=== PATIENT | female | born 1935 | race Caucasian/White ===

== ENCOUNTER 2018-05-13 08:33 | Emergency (ER) | payer BC, MEDICARE ==
[2018-05-13 09:19] LABS: #Basophils 0.1 thou/uL (0.0-0.2); #Eosinphils 0.2 thou/uL (0.0-0.7); #Lymphocytes 2.6 thou/uL (1.20-3.40); #Monocytes 0.7 thou/uL (0.11-0.59); #Neutrophils 4.3 thou/uL (1.40-6.50); %Basophils 0.9 % (0.0-1.0); %Eosinophils 2.5 % (0.0-10.0); %Lymphocytes 32.9 % (21.0-51.0); %Monocytes 8.4 % (0.0-10.0); %Neutrophils 55.3 % (42.0-75.0); Hemoglobin 15.9 g/dL (12.0-16.0); Mean Corpuscular Hemoglobin 30.5 pg (27.0-31.0); Mean Corpuscular Volume 92.3 fL (78.0-98.0); Mean Platelet Volume 8.6 fL (7.4-10.4); Platelet Count 208 thou/uL (130-400); RBC Distribution Width 13.2 % (11.5-14.5); Red Blood Cell (RBC) Count 5.22 mill/uL (4.20-5.40); White Blood Cell (WBC) Count 7.8 thou/uL (4.8-10.8)
[2018-05-13 09:31] LABS: INR-International Normal Ratio 1.2; PTT 30.5 SEC (22.9-36.1); Prothrombin Time 15.1 SEC (12.0-14.7)
--- NOTE | 2018-05-13 09:33 | CT ---
CT HEAD WITHOUT CONTRAST: History: Status post fall that occurred last night. Patient tripped over her foot and hit her head. A lert and oriented x2, which is baseline. Comparison: 01-07-17 FINDINGS: No parenchymal hemorrhage. No extraaxial hematoma. No midline shift. Basilar cisterns are patent. Age appropriate atrophy. Note, the degree of atrophy predominately involves the frontal and to a lesser extent temporal lobes. There is stable malacic change with loss of ravi white matter differentiation involving the right parietal lobe, near the vertex. The remainder of the cerebrum demonstrates preser vation of cortical ravi white matter differentiation. No evidence of hydrocephalus. Chronic small vessel ischemic changes of the white matter. Adequate aeration of the sinuses and mastoid air cells. Cavernous carotid atherosclerosis is noted. C alvarium is intact. Small left parietal scalp hematoma, near the vertex. IMPRESSION: 1. No intracranial post-traumatic sequellae. 2. Redemonstration of atrophy, predominately bifrontal in distribution. Correlate for PICK disease ve rsus dementia. POS: [facility]
[2018-05-13 09:50] LABS: Troponin I 0.011 ng/mL (< 0.028)
[2018-05-13 09:57] LABS: ALT (SGPT) 12 U/L (8-55); AST (SGOT) 26 U/L (5-34); Albumin 3.8 g/dL (3.4-4.8); Alkaline Phosphatase 99 U/L (40-150); Anion Gap 10 mmol/L (10-20); BUN (Urea Nitrogen) 14 mg/dL (9.8-20.1); Bilirubin, Total 0.8 mg/dL (0.2-1.2); Calc. Creatinine Clearance 0 mL/min (70-130); Calcium 9.7 mg/dL (7.8-10.44); Carbon Dioxide 26 mmol/L (23-31); Chloride 104 mmol/L (98-107); Estimated GFR-MDRD 50; Globulin 4.2 g/dL (2.4-3.5); Glucose 146 mg/dL (83-110); Potassium 4.3 mmol/L (3.5-5.1); Sodium 136 mmol/L (136-145)
--- NOTE | 2018-05-13 10:35 | RAD ---
THREE VIEWS LEFT FOOT: Indication: Left foot pain after fall. FINDINGS: There is diffuse osteopenia. There is scattered osteoporosis. Lisfranc alignment is preserved. Enthes opathic change is seen in the calcaneus. IMPRESSION: No acute osseous abnormality. POS: [facility]
--- NOTE | 2018-05-13 10:35 | RAD ---
AP CHEST: Indication: History of fall with chest pain. Comparison: 01-07-17 FINDINGS: There is stable cardiomegaly. There is stable elevation of the right hemidiaphragm. No focal contusio n, pleural effusion, or pneumothorax evident. No definite acute osseous abnormality was noted. IMPRESSION: No acute abnormalities. POS: [facility]
--- NOTE | 2018-05-13 10:35 | RAD ---
THERE VIEW LEFT ANKLE: Indication: Fall with pain. FINDINGS: Mortise is intact. There is no fracture or dislocation. Scattered degenerative change is seen. IMPRESSION: No acute osseous abnormality of the left ankle. POS: [facility]
== END 2018-05-13 11:15 ==
LOC: ERS 08:33
DX: S00.93XA Contusion of unspecified part of head, initial encounter (principal); I48.91 Unspecified atrial fibrillation; E11.9 Type 2 diabetes mellitus without complications; E78.5 Hyperlipidemia, unspecified; I10 Essential (primary) hypertension; Z79.82 Long term (current) use of aspirin; Z79.891 Long term (current) use of opiate analgesic; Z79.899 Other long term (current) drug therapy; Z79.4 Long term (current) use of insulin
CPT/HCPCS: 70450; 71045; 80053; 84484; 85025; 85610; 85730; 93005; 96374

== ENCOUNTER 2018-08-17 12:39 | Observation (INO) | payer BC, MEDICARE ==
[2018-08-17 13:40] LABS: #Eosinphils 0.3 thou/uL (0.0-0.7); #Lymphocytes 1.8 thou/uL (1.20-3.40); #Monocytes 0.7 thou/uL (0.11-0.59); #Neutrophils 6.7 thou/uL (1.40-6.50); %Basophils 0.3 % (0.0-1.0); %Eosinophils 2.8 % (0.0-10.0); %Lymphocytes 18.8 % (21.0-51.0); %Monocytes 7.1 % (0.0-10.0); %Neutrophils 71.1 % (42.0-75.0); Hemoglobin 15.5 g/dL (12.0-16.0); Mean Corpuscular HGB CONC 31.7 g/dL (32.0-36.0); Mean Corpuscular Hemoglobin 29.2 pg (27.0-31.0); Mean Corpuscular Volume 92.1 fL (78.0-98.0); Mean Platelet Volume 8.2 fL (7.4-10.4); Platelet Count 255 thou/uL (130-400); Red Blood Cell (RBC) Count 5.31 mill/uL (4.20-5.40); White Blood Cell (WBC) Count 9.5 thou/uL (4.8-10.8)
[2018-08-17 13:45] LABS: ALT (SGPT) 11 U/L (8-55); AST (SGOT) 18 U/L (5-34); Albumin 3.6 g/dL (3.4-4.8); Alkaline Phosphatase 97 U/L (40-150); Anion Gap 15 mmol/L (10-20); BUN (Urea Nitrogen) 25 mg/dL (9.8-20.1); Bilirubin, Total 0.7 mg/dL (0.2-1.2); CK (CPK) 50 U/L (29-168); Calc. Creatinine Clearance 0 mL/min (70-130); Calcium 9.5 mg/dL (7.8-10.44); Carbon Dioxide 21 mmol/L (23-31); Chloride 106 mmol/L (98-107); Estimated GFR-MDRD 52; Globulin 4.5 g/dL (2.4-3.5); Glucose 111 mg/dL (83-110); Potassium 4.3 mmol/L (3.5-5.1); Protein, Total 8.1 g/dL (6.0-8.3); Sodium 138 mmol/L (136-145)
[2018-08-17 14:26] LABS: Bilirubin Negative (Negative); Blood, Urine Moderate (Negative); Clarity CLOUDY (Clear); Glucose, Urine (Dipstick) Negative (Negative); Leukocyte Small (Negative); Nitrite Positive (Negative); Protein, Urine (Dipstick) 30 mg/dL (Neg-Trace); Specific Gravity, Urine 1.018 (1.002-1.036); pH, Urine 6.5 (5.0-9.0)
[2018-08-17 14:28] LABS: Bacteria/HPF Rare-Few HPF (None Seen); Hyaline Casts/LPF 7-10 HYALINE CAST LPF (0-3 Hyaline); Pathc Cast-AUWi Flag 2.03 (0-2.49); RBC/HPF 21-50 HPF (0-3); WBC/HPF 0-3 HPF (0-3)
--- NOTE | 2018-08-17 15:23 | RAD ---
PORTABLE AP CHEST: Date: 08/17/18 HISTORY: Altered mental status. Decreased heart rate. Atrial fibrillation. COMPARISON: 05/13/18. FINDINGS: Cardiac silhouette and pulmonary vasculature are within normal limits. There is linear scarring versu s atelectasis in the left lung base. The lungs otherwise appear clear. Vascular calcifications seen i n thoracic aorta. Osteopenia is present. There has been no interval change from prior exam. IMPRESSION: 1. No acute cardiopulmonary process. 2. Minimal scarring versus atelectasis left lung base. 3. Osteopenia. POS: [facility]
[2018-08-17] MEDS ORDERED: Acetaminophen 325 MG TAB PO PRN (15:28)
[2018-08-17] MEDS ORDERED: HumaLOG 300 UNITS/3 ML VIAL SC PRN (15:45)
[2018-08-17] MEDS ORDERED: Dextrose 5% in Water 1,000 ML IV PRN (15:45)
[2018-08-17] MEDS ORDERED: Dextrose 50% Abboject 50 ML SYRINGE SLOW IVP PRN (15:45)
[2018-08-17 16:40] LABS: Troponin I Less than 0.010 ng/mL (< 0.028)
[2018-08-17 18:06] VITALS: BMI 27.4
[2018-08-17] MEDS: Sodium Chloride 0.9% 1,000 ML IV SCH (19:59)
[2018-08-17 20:22] LABS: Troponin I Less than 0.010 ng/mL (< 0.028)
[2018-08-17] MEDS ORDERED: Pravastatin Sodium 20 MG TAB PO SCH (21:00)
--- NOTE | 2018-08-18 00:54 | HP ---
CHIEF COMPLAINT: Generalized weakness. HISTORY OF PRESENT ILLNESS: This patient is an 82-year-old female with a history of diabetes. She is living in the [facility]. The patient has control over her usual insulin. The folks at the [facility] can only come and check her blood sugar. This morning, the patient reports that she woke feeling poorly, had some dizziness. The person who usually checks her blood sugar was late and she thought she needed to try to go eat something, so she tried to make it out of her apartment to the dining area, but was too weak and basically collapsed, although she does not think she lost consciousness. She is a little bit fuzzy about the details around that time. She believes she was in that state for maybe an hour before she was ultimately found and ambulance was called and brought her to the hospital. She denies any other symptoms and states she had actually been feeling pretty well in her normal state of health prior to this. Apparently, the patient's heart rate was 45 on the arrival of the EMS. She was a bit confused and only oriented x1. She apparently was hypoglycemic on arrival to, although I do not have an exact number. REVIEW OF SYSTEMS: The patient denies any significant fevers, chills, or weight loss. All other systems were reviewed and all pertinent positives and negatives noted in the history of present illness. FAMILY HISTORY: Father when she was 10 of pneumonia. She is unaware of any medical issues with her mother. PAST MEDICAL HISTORY: Notable for the diabetes, apparently a very mild dementia, chronic atrial fibrillation, hyperlipidemia, hypertension. PAST SURGICAL HISTORY: Cataractectomy. SOCIAL HISTORY: The patient is a nonsmoker, nondrinker, and nondrug user. She is a . She is full code and her son would be her surrogate decision maker should that become necessary. ALLERGIES: PENICILLIN. CURRENT MEDICATIONS: 1. Bromfenac 0.09% ophthalmic one drop both eyes b.i.d. 2. Cardizem 120 mg p.o. daily. 3. Dulcolax p.r.n. 4. Exelon transdermal patch 9.5 mg per 24 hour, one patch per day. 5. Folic acid 1 mg daily. 6. Glucagon p.r.n., hypoglycemia. 7. Glutose gel p.r.n., hypoglycemia. 8. Levemir 15 units subcu q.a.m. and 10 units subcu q.p.m. 9. Lotemax ointment ophthalmic 5% one drop to both eyes two times a day. 10. Milk of magnesium p.r.n. 11. MiraLAX p.r.n. 12. Nitrostat p.r.n. 13. NovoLog sliding scale. 14. Pravastatin 10 mg at bedtime. 15. PreserVision AREDS 2 one p.o. b.i.d. 16. Surfak 240 mg b.i.d. 17. Natural tears one drop both eyes b.i.d. 18. Tylenol p.r.n. 19. B12 1000 mcg daily. 20. Aspirin 81 mg daily. 21. Coreg 3.125 mg listed as once daily. 22. Clonidine 0.1 mg daily. 23. Potassium 75 mg p.o. daily. PHYSICAL EXAMINATION: VITAL SIGNS: BP 147/69, pulse 61, respirations 20, O2 saturation 100% on room air. GENERAL APPEARANCE: Age-appropriate female, in no distress. She is awake, alert, oriented, pleasant, and cooperative. HEENT: Pupils are equal and reactive. Her extraocular lens implants are visible. She has no OP lesions, but a profoundly dry oral mucosa. NECK: Supple and symmetric. HEART: Regular without murmurs, gallops, or rubs. LUNGS: Clear to auscultation bilaterally with good chest wall expansion and air exchange. ABDOMEN: Soft, nontender, and nondistended. Positive bowel sounds. No masses. No organomegaly. EXTREMITIES: Warm and dry with no cyanosis, clubbing, or edema. LABORATORY DATA: White count 9.5, hemoglobin 15.5, platelets 255. Sodium 138, potassium 4.3, chloride 106, CO2 21, BUN 25, creatinine 1.03, glucose 111, calcium 9.5, AST 18, ALT 11, alkaline phosphatase 97. Troponin less than 0.02. Albumin 3.6. Urinalysis shows moderate blood, positive nitrites, small leukocyte esterases, 0 to 3 white cells, 7 to 10 squamous epithelium, 7 to 10 hyaline casts. Chest x-ray, no acute cardiopulmonary processes. Minimal scarring versus atelectasis at the lung base on the left and osteopenia. The EKG showed atrial fibrillation with bradycardia in the 50s. IMPRESSION AND PLAN: 1. Hypoglycemia. The patient had apparently some symptomatic hypoglycemia this morning, which is resolved in the emergency department. We will continue to hydrate gently. She has dextrose ordered as well as glucagon. We will hold off on any additional insulin other than some sliding scale. We will watch the patient overnight to ensure no further significant drops. 2. Bradycardia. The patient had some bradycardia on the scene. She has been fairly stable. In the emergency department, she does have atrial fibrillation and is on beta rylee and calcium channel rylee for rate control. This appears to be stabilized. 3. Hypothermia. Temperature initially was 93.5 rectally. She is up to 94 rectally at the time of my exam. She is on a warming blanket, which will be continued. I suspect this was related to the patient's hypoglycemia and should spontaneously resolve. We will check thyroid levels in the morning. 4. Atrial fibrillation. We will continue with her usual medications, although holding any additional Cardizem. 5. History of dementia. Continue with the Exelon patch. 6. Hyperlipidemia. Continue with the pravastatin. Job ID: [id number]
[2018-08-18 04:54] LABS: #Eosinphils 0.1 thou/uL (0.0-0.7); #Lymphocytes 1.9 thou/uL (1.20-3.40); #Monocytes 0.6 thou/uL (0.11-0.59); #Neutrophils 5.1 thou/uL (1.40-6.50); %Basophils 0.4 % (0.0-1.0); %Eosinophils 1.8 % (0.0-10.0); %Lymphocytes 24.1 % (21.0-51.0); %Monocytes 8.2 % (0.0-10.0); %Neutrophils 65.5 % (42.0-75.0); Hemoglobin 13.2 g/dL (12.0-16.0); Mean Corpuscular HGB CONC 32.5 g/dL (32.0-36.0); Mean Corpuscular Hemoglobin 29.9 pg (27.0-31.0); Mean Platelet Volume 7.8 fL (7.4-10.4); Platelet Count 252 thou/uL (130-400); RBC Distribution Width 12.8 % (11.5-14.5); White Blood Cell (WBC) Count 7.8 thou/uL (4.8-10.8)
[2018-08-18 05:09] LABS: Anion Gap 13 mmol/L (10-20); BUN (Urea Nitrogen) 21 mg/dL (9.8-20.1); Calc. Creatinine Clearance 61 mL/min (70-130); Calcium 8.9 mg/dL (7.8-10.44); Carbon Dioxide 20 mmol/L (23-31); Chloride 107 mmol/L (98-107); Estimated GFR-MDRD 63; Glucose 181 mg/dL (83-110); Potassium 3.8 mmol/L (3.5-5.1); Sodium 136 mmol/L (136-145)
[2018-08-18 05:26] LABS: Thyroid Stimulating Hormone 1.2313 uIU/mL (0.35-4.94)
[2018-08-18] MEDS ORDERED: Aspirin 81 mg Enteric Coated Tablet PO SCH (09:00)
[2018-08-18] MEDS ORDERED: Folic Acid 1 MG TAB PO SCH (09:00)
[2018-08-18] MEDS ORDERED: cloNIDine 0.1 MG TAB PO SCH (09:00)
[2018-08-18] MEDS ORDERED: Rivastigmine 9.5mg/24 Hour PATCH TD SCH (09:00)
[2018-08-18] MEDS: Sodium Chloride 0.9% 1,000 ML IV SCH (12:17)
[2018-08-18 16:02] VITALS: BP 153/75; TEMP 98.5
[2018-08-18] MEDS ORDERED: Carvedilol 3.125 MG TAB PO SCH (17:00)
--- NOTE | 2018-08-19 13:42 | DIS ---
DATE OF ADMISSION: 08/17/2018 DATE OF DISCHARGE: 08/18/2018 DISCHARGE DIAGNOSES: 1. Hypoglycemia. 2. Hypothermia. 3. Bradycardia. 4. Atrial fibrillation. 5. History of mild dementia. 6. Hyperlipidemia. HISTORY OF PRESENT ILLNESS: This patient is an 82-year-old female, living in [facility] living environment. The patient has a history of diabetes and reports that on the morning of admission, she usually has someone come check her blood sugars. She awoke feeling poorly that morning and had some dizziness and was delayed getting her blood sugars checked. She decided to go to the dining [facility], but subsequently apparently became weak and was unable to get to the dining [facility]. She was a little sketchy on details, but does not believe that she actually lost consciousness. She believes she was in that state for about an hour till she was found by staff and an ambulance was called. When EMS arrived, she was noted to be bradycardic with a heart rate of 45 and she was somewhat confused. On arrival to the emergency department, she was noted to be hypoglycemic. This was addressed aggressively in the emergency department and improved, although the patient was also noted to have a rectal temperature of 93.5 consistent with hypoglycemia. Her heart rate had recovered to baseline. She had no further episodes of bradycardia at the time of my initial evaluation. HOSPITAL COURSE: The patient was admitted to the hospital with 1 episode of heart rate of 45 per EMS as well as hypoglycemia, which has been aggressively treated in the emergency department and hypothermia with a temperature of 94. At the time of my evaluation, the patient was placed in observation initially with a warming blanket. She was hydrated and her insulin held with only minimal sliding scale available. The patient subsequently recovered very nicely. She had no further bradycardia and no further hypothermia and blood sugars were between 150 and 200. Generally speaking, the patient was up and around, eating well, and was felt to be appropriate for discharge. PHYSICAL EXAMINATION: On the day of discharge, VITAL SIGNS: Temperature was 98.5, pulse 86, respirations 16, O2 saturation 96 on room air, BP 153/75. Of note, the patient had her Cardizem and Coreg held initially because of the episode of bradycardia and as a result in some elevation of her blood pressure which responded nicely once these were resumed. Her heart was irregular without murmurs. LUNGS: Clear. ABDOMEN: Soft and nontender. EXTREMITIES: Warm and dry. DISPOSITION: The patient is discharged to the [facility] facility. ACTIVITY: As tolerated. DIET: She will remain on a diabetic diet. MEDICATIONS: 1. She will continue with her Humulin and sliding scale. However, her nighttime dose of insulin should be held until she has followup. She will continue with her, 1. Nitroglycerin. 2. Namenda. 3. MiraLAX. 4. Milk of magnesia. 5. Lotemax. 6. Dextrose oral gel p.r.n. 7. Exelon patch. 8. Folic acid. 9. Cardizem. 10. Dulcolax. 11. Eliquis. 12. Aspirin. 13. Levemir. 14. B12. 15. Tylenol. 16. PreserVision. 17. Surfak. 18. Natural tears. 19. Pravachol. 20. Bromfenac. 21. Catapres. 22. Coreg. 23. K-Dur. FOLLOWUP: She is to follow up with Dr. Abel in 7 days where her insulin regimen should be readdressed. She can return to the emergency department should she have any problems prior to that time. Job ID: [id number]
--- NOTE | 2018-08-22 23:46 | EKG ---
Test Reason : Blood Pressure : / mmHG Vent. Rate : 065 BPM Atrial Rate : 050 BPM P-R Int : 000 ms QRS Dur : 092 ms QT Int : 426 ms P-R-T Axes : 000 -15 009 degrees QTc Int : 443 ms Atrial fibrillation Moderate voltage criteria for LVH, may be normal variant Abnormal ECG Confirmed by ANDREIA SAHNI DO ([id number]), editor managing director SEMAJ SULLIVAN ([id number] on 08/22/2018 11:45:35 PM Referred By: Confirmed By:ANDREIA SAHNI DO
== END 2018-08-18 18:16 ==
LOC: ERS 12:39 → ERHOLD 15:23 → 2SW 17:49
PROVIDERS: ADMIT Internal Medicine; ATTEND Internal Medicine
DX: E11.649 Type 2 diabetes mellitus with hypoglycemia without coma (principal); R68.0 Hypothermia, not associated with low environmental temperature; R00.1 Bradycardia, unspecified; I48.2 Chronic atrial fibrillation; F03.90 Unspecified dementia, unspecified severity, without behavioral disturbance, psychotic disturbance, mood disturbance, and anxiety; E78.5 Hyperlipidemia, unspecified; I10 Essential (primary) hypertension; Z79.01 Long term (current) use of anticoagulants; Z79.4 Long term (current) use of insulin; Z79.82 Long term (current) use of aspirin; Z79.899 Other long term (current) drug therapy; Z88.0 Allergy status to penicillin; Z98.49 Cataract extraction status, unspecified eye
CPT/HCPCS: 71045; 80048; 80053; 81001; 82550; 82962 ×2; 84439; 84443; 84484 ×2; 85025 ×2; 93005; 96360; 96361 ×2; 97139; 99285; G0378 ×2; 36415; 36416; A4353

== ENCOUNTER 2019-09-06 10:28 | Inpatient (IN) | payer MEDICARE, BC ==
--- NOTE | 2019-09-06 10:58 | RAD ---
EXAM: Single view of the chest HISTORY: Cough COMPARISON: 08/17/2018 FINDINGS: Single view of the chest shows an enlarged but stable cardiomediastinal silhouette. Increa sed interstitial markings are present. There is no evidence of consolidation, mass, or pleural effusion. The bones are unremarkable. IMPRESSION: No evidence of acute cardiopulmonary disease
[2019-09-06 11:13] LABS: #Eosinphils 0.1 thou/uL (0.0-0.7); #Lymphocytes 1.4 thou/uL (1.20-3.40); #Monocytes 0.7 thou/uL (0.11-0.59); #Neutrophils 7.5 thou/uL (1.40-6.50); %Basophils 0.3 % (0.0-1.0); %Eosinophils 0.7 % (0.0-10.0); %Lymphocytes 14.6 % (21.0-51.0); %Monocytes 6.7 % (0.0-10.0); %Neutrophils 77.7 % (42.0-75.0); Hemoglobin 12.4 g/dL (12.0-16.0); Mean Corpuscular HGB CONC 32.6 g/dL (32.0-36.0); Mean Corpuscular Hemoglobin 28.4 pg (27.0-31.0); Mean Corpuscular Volume 86.9 fL (78.0-98.0); Mean Platelet Volume 8.5 fL (7.4-10.4); Platelet Count 213 thou/uL (130-400); RBC Distribution Width 14.3 % (11.5-14.5); Red Blood Cell (RBC) Count 4.38 mill/uL (4.20-5.40); White Blood Cell (WBC) Count 9.7 thou/uL (4.8-10.8)
[2019-09-06] MEDS ORDERED: cefTRIAXone\\ROCEPHIN 1 GM VIAL ONE (11:13)
[2019-09-06 11:51] LABS: Albumin 3.5 g/dL (3.4-4.8)
[2019-09-06 11:52] LABS: Chloride 105 mmol/L (98-107); Sodium 135 mmol/L (136-145)
[2019-09-06 11:53] LABS: Calcium 8.7 mg/dL (7.8-10.44); Glucose 107 mg/dL (83-110)
[2019-09-06 11:54] LABS: Globulin 3.8 g/dL (2.4-3.5); Protein, Total 7.3 g/dL (6.0-8.3)
[2019-09-06 11:55] LABS: Bilirubin, Total 1.5 mg/dL (0.2-1.2); Carbon Dioxide 18 mmol/L (23-31)
[2019-09-06 11:56] LABS: Alkaline Phosphatase 86 U/L (40-110)
[2019-09-06 11:57] LABS: Calc. Creatinine Clearance 0 mL/min (70-130); Estimated GFR-MDRD 52
[2019-09-06 11:58] LABS: BUN (Urea Nitrogen) 19 mg/dL (9.8-20.1); CKMB 2.4 ng/mL (0-6.6)
[2019-09-06] MEDS ORDERED: Azithromycin 500 MG VIAL ONE (11:58)
[2019-09-06 11:59] LABS: ALT (SGPT) 11 U/L (8-55); AST (SGOT) 16 U/L (5-34)
[2019-09-06 12:16] LABS: Anion Gap 16 mmol/L (10-20)
[2019-09-06] MEDS ORDERED: Ondansetron PF 4 MG/2 ML Vial IVP PRN (12:58)
[2019-09-06] MEDS ORDERED: Acetaminophen 325 MG TAB PO PRN (12:58)
[2019-09-06] MEDS ORDERED: Dextrose 50% Abboject 50 ML SYRINGE SLOW IVP PRN ×2 (13:02→20:48)
[2019-09-06] MEDS ORDERED: HumaLOG 300 UNITS/3 ML VIAL SC PRN (13:02)
[2019-09-06] MEDS ORDERED: Dextrose 5% in Water 1,000 ML IV PRN ×2 (13:02→20:48)
--- NOTE | 2019-09-06 13:06 | PDOC.HHP ---
Hospitalist HPI - History of Present Illness Cough History of Present Illness: Ms. Moore is an 83-year-old lady with past medical history of hypertension, atrial fibrillation, type 2 diabetes mellitus who presents from an assisted living facility with cough. She states the cough is productive of yellowish sputum since Friday. A nurse practitioner saw her and they ordered an x-ray, which apparently is being read as a possible pneumonia. She was told to come to the emergency room for further evaluation. She denies any fevers but has said since Friday started feeling a bit chills and feeling weak. She said also she had an episode where she had some blood-tinged sputum. She denies any recent sick contacts or recent travel. States she feels about 50% from her baseline. Hospitalist ROS - Review of Systems Constitutional: reports: chills. denies: fever, sweats, weakness, malaise, other Eyes: denies: pain, vision change, conjunctivae inflammation, eyelid inflammation, redness, other ENT: denies: ear pain, ear discharge, nose pain, nose discharge, nose congestion , mouth pain, mouth swelling, throat pain, throat swelling, other Respiratory: reports: cough. denies: dry, shortness of breath, SOB with excertion, pleuritic pain, sputum, wheezing, other Cardiovascular: denies: chest pain, palpitations, orthopnea, paroxysmal noc. dyspnea, edema, light headedness, other Gastrointestinal: denies: nausea, vomiting, abdominal pain, diarrhea, constipation, melena, hematochezia, other Genitourinary: denies: dysuria, frequency, incontinence, hematuria, retention, other Musculoskeletal: denies: neck pain, shoulder pain, arm pain, back pain, hand pain, leg pain, foot pain, other Skin: denies: rash, lesions, kulwant, bruising, other Neurological: denies: weakness, numbness, incoordination, change in speech, confusion, seizures, other - Medication Medications: bromfenac DROPS : Strength - 0.09 % : OPHTHALMIC Patient Dose: 1 Drps Eyes Both 2 times a day. Cardizem oral TABLET : Strength - 120 mg : ORAL Patient Dose: 1 tab(s) Oral once a day. Dulcolax (bisacodyl) rectal SUPPOSITORY, RECTAL : Strength - 10 mg : RECTAL Patient Dose: 1 tab(s) Rectal.PRN. Exelon transdermal PATCH, TRANSDERMAL 24 HOURS : Strength - 9.5 mg/24 hour : TRANSDERMAL Patient Dose: 1 Patch Transdermal once a day. folic acid oral TABLET : Strength - 1 mg : ORAL Patient Dose: 1 tab(s) Oral once a day. glucagon VIAL (EA) : Strength - 1 mg : INJECTION Patient Dose: 1 mg Intramuscular.PRN FOR HYPOGLYCEMIA. Glutose GEL (GRAM) : Strength - 40 % : ORAL Patient Dose: 1 units Oral.PRN FOR HYPOGLYCEMIA. Levemir VIAL (ML) : Strength - 100 unit/mL : SUBCUTANEOUS Patient Dose: 15 units Subcutaneous once a day (in the morning).& 10 UNITS AT BEDTIME. Lotemax OINTMENT (GRAM) : Strength - 0.5 % : OPHTHALMIC Patient Dose: 1 Drps Eyes Both 2 times a day. Milk of Magnesia oral suspension SUSPENSION, ORAL (FINAL DOSE FORM) : Strength - 800 mg/5 mL : ORAL Patient Dose: 30 mL Oral once a day.PRN. Miralax POWDER (GRAM) : Strength - 17 gram/dose : ORAL Patient Dose: 1 appful Oral once a day.PRN CONSTIPATION. Nitrostat sublingual TABLET, SUBLINGUAL : Strength - 0.4 mg : SUBLINGUAL Patient Dose: 1 tab(s) Sublingual.X3 EVERY 5 MINS PRN CHEST PAIN. NovoLOG VIAL (ML) : Strength - 100 unit/mL : SUBCUTANEOUS Patient Dose: Unknown.SLIDING SCALE. pravastatin TABLET : Strength - 10 mg : ORAL Patient Dose: 1 tab(s) Oral once a day (at bedtime). PreserVision AREDS 2 CAPSULE : Strength - 250 mg-200 unit-40 mg-1 mg-5 mg-1 mg : ORAL Patient Dose: 1 tab(s) Oral 2 times a day. Surfak CAPSULE : Strength - 240 mg : ORAL Patient Dose: 1 tab(s) Oral 2 times a day.PRN CONSTIPATION. Tears Naturale DROPS : OPHTHALMIC Patient Dose: 1 Drps Eyes Both 2 times a day. Tylenol TABLET : Strength - 325 mg : ORAL Patient Dose: 2 tab(s) Oral every 4 hours prn. B Complex-Vitamin B12 TABLET : ORAL Patient Dose: 1000 mcg Oral once a day. aspirin oral TABLET : Strength - 81 mg : ORAL Patient Dose: 81 mg Oral once a day. carvedilol TABLET : Strength - 3.125 mg : ORAL Patient Dose: 3.125 mg Oral once a day. cloNIDine HCl TABLET : Strength - 0.1 mg : ORAL Patient Dose: 0.1 mg Oral once a day. potassium TABLET : Strength - 75 mg : ORAL Patient Dose: 20 mEq Oral once a day. Hospitalist History - Past Medical History Source: patient Cardiac: reports: AFIB, HTN Pulmonary: reports: no pertinent history SET UP [employer]ES: reports: no pertinent history Gastrointestinal: reports: no pertinent history Heme/Onc: reports: no pertinent history Hepatobiliary: reports: no pertinent history Psych: reports: no pertinent history Musculoskeletal: reports: no pertinent history Rheumatologic: reports: no pertinent history Infectious Disease: reports: no pertinent history ENT: reports: no pertinent history Renal/: reports: no pertinent history Endocrine: reports: Diabetes Dermatology: reports: no pertinent history - Past Surgical History Past Surgical History: reports: Other (Removal of adenoids) - Family History Family History: reports: no pertinent history - Social History Smoking Status: Never smoker Alcohol: reports: None Drugs: reports: none Living Situation: Shelter Activity level: independent ambulation - Exam General Appearance: NAD, awake alert, ill appearing Eye: PERRL, anicteric sclera ENT: normocephalic atraumatic, no oropharyngeal lesions, moist mucosa Neck: supple, symmetric, no JVD, no thyromegaly, no lymphadenopathy, no carotid bruit Heart: RRR, no murmur, no gallops, no rubs, normal peripheral pulses Respiratory: no wheezes, no rales, no ronchi, normal chest expansion, no tachypnea, normal percussion Respiratory - other findings: Right lower lobe rhonchi Gastrointestinal: soft, non-tender, non-distended, normal bowel sounds, no palpable masses, no hepatomegaly, no splenomegaly, no bruit Extremities: no cyanosis, no clubbing, no edema Skin: normal turgor, no lesions, no rashes Neurological: cranial nerve grossly intact, normal sensation to touch, no weakness, no focal deficits, no new deficit Musculoskeletal: normal tone, normal strength, no muscle wasting Psychiatric: normal affect, normal behavior, A&O x 3 Hospitalist Results - Labs Result Diagrams: 09/06/19 11:02 09/06/19 11:02 Lab results: WBC 9.7 thou/uL (4.8-10.8) 09/06/19 11:02 Hgb 12.4 g/dL (12.0-16.0) 09/06/19 11:02 Hct 38.0 % (36.0-47.0) 09/06/19 11:02 MCV 86.9 fL (78.0-98.0) 09/06/19 11:02 Plt Count 213 thou/uL (130-400) 09/06/19 11:02 Neutrophils % 77.7 % (42.0-75.0) H 09/06/19 11:02 Sodium 135 mmol/L (136-145) L 09/06/19 11:02 Potassium 4.0 mmol/L (3.5-5.1) 09/06/19 11:02 Chloride 105 mmol/L (98-107) 09/06/19 11:02 Carbon Dioxide 18 mmol/L (23-31) L 09/06/19 11:02 BUN 19 mg/dL (9.8-20.1) 09/06/19 11:02 Creatinine 1.02 mg/dL (0.6-1.1) 09/06/19 11:02 Glucose 107 mg/dL (83-110) 09/06/19 11:02 Lactic Acid 1.8 mmol/L (0.5-2.2) 09/06/19 11:02 Calcium 8.7 mg/dL (7.8-10.44) 09/06/19 11:02 Total Bilirubin 1.5 mg/dL (0.2-1.2) H 09/06/19 11:02 AST 16 U/L (5-34) 09/06/19 11:02 ALT 11 U/L (8-55) 09/06/19 11:02 Alkaline Phosphatase 86 U/L (40-110) 09/06/19 11:02 CK-MB (CK-2) 2.4 ng/mL (0-6.6) 09/06/19 11:02 Troponin I 0.050 ng/mL (< 0.028) H 09/06/19 11:02 B-Natriuretic Peptide 487.4 pg/mL (0-100) H 09/06/19 11:02 Serum Total Protein 7.3 g/dL (6.0-8.3) 09/06/19 11:02 Albumin 3.5 g/dL (3.4-4.8) 09/06/19 11:02 - EKG Interpretation EKG: Rate (beats per minute): 94, Conduction normal, ST segments normal, T waves normal, [place] normal, Other findings include:, left ventricular hypertrophy. - Radiology Interpretation Chest x-ray Status: report reviewed by me Additional Comment: RLL possible infiltrative process Hospitalist H&P A/P - Problem (1) Acute pneumonia Code(s): J18.9 - PNEUMONIA, UNSPECIFIED ORGANISM Status: Acute (2) T2DM (type 2 diabetes mellitus) Status: Acute (3) HTN (hypertension) Code(s): I10 - ESSENTIAL (PRIMARY) HYPERTENSION Status: Acute (4) Chronic atrial fibrillation Code(s): I48.2 - CHRONIC ATRIAL FIBRILLATION * DO NOT USE * Status: Chronic - Plan Plan: Official chest x-ray read makes no mention of right lower lobe, however on my interpretation there seems to be a fluffy infiltrative pattern and possible early consolidation in the right lower lobe. Will repeat chest x-ray tomorrow morning and see if there is any change. Clinically treat for early pneumonia at this time, obtain blood culture, sputum culture, viral pathogen panel Ceftriaxone plus azithromycin Medium dose correctional scale and hypoglycemia protocol for management of diabetes Continue other home medications once reconciled DVT prophylaxis: SCDs CODE STATUS: Full ACP: The son, Harris Moore, is the surrogate decision maker Disposition: Treat for possible early pneumonia. Can de-escalate antibiotics if additional work-up is negative in the coming days.
[2019-09-06 14:51] VITALS: BMI 26.4
[2019-09-06 15:12] LABS: Troponin I 0.058 ng/mL (< 0.028)
[2019-09-06 17:31] LABS: Troponin I 0.036 ng/mL (< 0.028)
[2019-09-06] MEDS ORDERED: Dextrose 50 % In Water 50 ML SYRINGE ONE (18:30)
[2019-09-06] MEDS: Dextrose 5 %-0.45 % NaCl 1,000 ML IV SCH (19:05)
[2019-09-06 19:09] LABS: #Eosinphils 0.1 thou/uL (0.0-0.7); #Lymphocytes 1.3 thou/uL (1.20-3.40); #Monocytes 0.7 thou/uL (0.11-0.59); %Basophils 0.2 % (0.0-1.0); %Lymphocytes 14.5 % (21.0-51.0); %Monocytes 7.7 % (0.0-10.0); %Neutrophils 76.5 % (42.0-75.0); Hemoglobin 12.3 g/dL (12.0-16.0); Mean Corpuscular HGB CONC 32.8 g/dL (32.0-36.0); Mean Corpuscular Hemoglobin 29.1 pg (27.0-31.0); Mean Corpuscular Volume 88.9 fL (78.0-98.0); Mean Platelet Volume 8.5 fL (7.4-10.4); Platelet Count 197 thou/uL (130-400); RBC Distribution Width 14.3 % (11.5-14.5); Red Blood Cell (RBC) Count 4.21 mill/uL (4.20-5.40); White Blood Cell (WBC) Count 9.2 thou/uL (4.8-10.8)
[2019-09-06 19:21] LABS: ALT (SGPT) 10 U/L (8-55); AST (SGOT) 14 U/L (5-34); Albumin 3.2 g/dL (3.4-4.8); Alkaline Phosphatase 84 U/L (40-110); Anion Gap 11 mmol/L (10-20); BUN (Urea Nitrogen) 16 mg/dL (9.8-20.1); Bilirubin, Total 1.1 mg/dL (0.2-1.2); Calc. Creatinine Clearance 52 mL/min (70-130); Calcium 8.7 mg/dL (7.8-10.44); Carbon Dioxide 21 mmol/L (23-31); Chloride 106 mmol/L (98-107); Estimated GFR-MDRD 57; Glucose 232 mg/dL (83-110); Magnesium 1.8 mg/dL (1.6-2.6); Potassium 3.4 mmol/L (3.5-5.1); Protein, Total 7.2 g/dL (6.0-8.3); Sodium 135 mmol/L (136-145)
[2019-09-06 21:39] LABS: Legionella Urinary Ag Negative (Negative); Strep pneumo Urine Ag NEGATIVE (NEGATIVE)
[2019-09-07 05:46] LABS: #Eosinphils 0.1 thou/uL (0.0-0.7); #Lymphocytes 2.3 thou/uL (1.20-3.40); #Monocytes 0.6 thou/uL (0.11-0.59); #Neutrophils 5.4 thou/uL (1.40-6.50); %Basophils 0.4 % (0.0-1.0); %Eosinophils 1.7 % (0.0-10.0); %Lymphocytes 27.2 % (21.0-51.0); %Monocytes 6.9 % (0.0-10.0); %Neutrophils 63.7 % (42.0-75.0); Hemoglobin 11.4 g/dL (12.0-16.0); Mean Corpuscular HGB CONC 32.7 g/dL (32.0-36.0); Mean Corpuscular Hemoglobin 28.9 pg (27.0-31.0); Mean Corpuscular Volume 88.4 fL (78.0-98.0); Mean Platelet Volume 8.3 fL (7.4-10.4); Platelet Count 207 thou/uL (130-400); RBC Distribution Width 14.2 % (11.5-14.5); Red Blood Cell (RBC) Count 3.93 mill/uL (4.20-5.40); White Blood Cell (WBC) Count 8.5 thou/uL (4.8-10.8)
[2019-09-07 05:47] LABS: Anion Gap 12 mmol/L (10-20); BUN (Urea Nitrogen) 17 mg/dL (9.8-20.1); Calc. Creatinine Clearance 62 mL/min (70-130); Calcium 8.7 mg/dL (7.8-10.44); Carbon Dioxide 21 mmol/L (23-31); Chloride 107 mmol/L (98-107); Estimated GFR-MDRD 71; Glucose 78 mg/dL (83-110); Potassium 3.4 mmol/L (3.5-5.1); Sodium 137 mmol/L (136-145)
[2019-09-07] MEDS ORDERED: Bisacodyl 10 MG SUPP PR PRN (07:51)
[2019-09-07] MEDS ORDERED: Docusate Calcium (SURFAK) 240 MG CAP PO PRN (07:51)
[2019-09-07] MEDS ORDERED: Polyethylene Glycol 3350 17 GM Packet PO PRN (07:51)
[2019-09-07] MEDS ORDERED: Nitroglycerin 0.4 MG TAB (25 Tab Bottle) SL PRN (07:51)
[2019-09-07] MEDS ORDERED: Milk Of Magnesia 30 ML UDCUP PO PRN (07:51)
[2019-09-07] MEDS ORDERED: BROMFENAC SODIUM EA EYE PRN ×2 (07:51→08:13)
--- NOTE | 2019-09-07 07:55 | PDOC.HOSPP ---
- Subjective Encounter Date: 09/07/19 Encounter Time: 12:00 Subjective: Patient with flu symptoms for 9 days now, flu A positive. Feeling a bit better this AM but still with cough and severe fatigue. No appetite. Had hypoglycemia overnight, improved now. - Objective Vital Signs & Weight: Vital Signs (12 hours) Temp Pulse Resp BP BP Pulse Ox 09/07/19 03:30 97.7 F 88 18 158/77 H 97 09/06/19 23:00 97.2 F L 80 18 140/79 96 09/06/19 19:55 160/75 H 09/06/19 19:53 90 18 197/91 H 99 Weight Weight 154 lb I&O: 09/06/19 09/07/19 09/08/19 06:59 06:59 06:59 Intake Total 1200 Output Total 100 Balance 1100 Result Diagrams: 09/07/19 04:40 09/07/19 04:40 Additional Labs: Accuchecks 09/07/19 09/06/19 09/06/19 05:17 20:55 19:35 POC Glucose 84 187 H 144 H 09/06/19 09/06/19 09/06/19 19:13 19:03 18:38 POC Glucose 162 H 176 H 338 H 09/06/19 18:28 POC Glucose Less than 35 L* Hospitalist ROS - Review of Systems Constitutional: denies: fever, chills Respiratory: reports: cough, shortness of breath Cardiovascular: denies: chest pain, palpitations, orthopnea Gastrointestinal: denies: nausea, vomiting, abdominal pain - Medication Medications: Active Medications Generic Name Dose Route Start Last Admin Trade Name Freq PRN Reason Stop Dose Admin Dextrose/Sodium Chloride 1,000 mls @ 40 mls/hr 09/06/19 19:00 09/06/19 19:05 D5 1/2 Ns IV 1,000 mls .Q24H [place] Administration Sodium Chloride 10 ml 09/06/19 21:00 09/06/19 22:36 Flush - Normal Saline IVF Not Given Q12HR [place] - Exam General Appearance: awake alert, ill appearing ENT: moist mucosa Heart: RRR, no murmur, no gallops, no rubs Respiratory: CTAB, no wheezes, no rales, no ronchi Gastrointestinal: soft, non-tender, non-distended, normal bowel sounds Psychiatric: normal affect, normal behavior, A&O x 3 Hosp A/P (1) Pneumonia Code(s): J18.9 - PNEUMONIA, UNSPECIFIED ORGANISM Status: Acute Qualifiers: Laterality: right Lung location: lower lobe of lung (2) Influenza A Code(s): J10.1 - FLU DUE TO OTH IDENT INFLUENZA VIRUS W OTH RESP MANIFEST Status: Acute (3) HTN (hypertension) Code(s): I10 - ESSENTIAL (PRIMARY) HYPERTENSION Status: Acute (4) T2DM (type 2 diabetes mellitus) Status: Acute (5) Hypokalemia Code(s): E87.6 - HYPOKALEMIA Status: Acute (6) Hypoglycemia Code(s): E16.2 - HYPOGLYCEMIA, UNSPECIFIED Status: Resolved (7) Chronic anticoagulation Code(s): Z79.01 - INTERMEDIATE CARD TENDER (CURRENT) USE OF ANTICOAGULANTS Status: Chronic (8) Chronic atrial fibrillation Code(s): I48.2 - CHRONIC ATRIAL FIBRILLATION * DO NOT USE * Status: Chronic - Plan Patient positive for Flu A. CXR this AM confirms RLL pneumonia. Not severe with no leukocytosis so I doubt staph. Giving Rocephin and Azithromycin. Will need 1 more day of IV abx. Switch to inpatient. Severe hypoglycemic episode yesterday afternoon. Resolved with glucose. Decrease longacting insulin until eating better. Watch until tomorrow to make sure improving and blood sugars stable, then likely back to assisted living
[2019-09-07] MEDS ORDERED: Potassium Chloride 20 MEQ TAB PO SCH (08:00)
--- NOTE | 2019-09-07 08:54 | RAD ---
CHEST 2 VIEWS: HISTORY: Bronchitis versus pneumonia. COMPARISON: 09/06/2019. FINDINGS: Abnormal increased linear and interstitial opacity changes bilaterally including both right and left infrahilar regions more prominent in the right lower lobe with more indistinction of the right hemidi aphragm certainly concerning for some developing right lower lobe pneumonia or pneumonitis. Heart si ze is within normal limits. Possible small pleural effusions. IMPRESSION: Increased linear and interstitial markings bilaterally more prominent in the right lower lobe, eviden ce for some right lower lobe pneumonia or pneumonitis. Continued followup for clearing. POS: [facility]
[2019-09-07] MEDS ORDERED: Non-Formulary Item 1 EACH (Insulin Detemir 100 Units/Ml [Levemir] 10 UNIT) SQ SCH (09:00)
[2019-09-07] MEDS ORDERED: GLYCERIN EA EYE SCH (09:00)
[2019-09-07] MEDS ORDERED: [UNRECOGNIZED DRUG - OTHER] EA EYE SCH (09:00)
[2019-09-07] MEDS ORDERED: Non-Formulary Item 1 EACH (Vit A/Vit C/Vit E/Zinc/Copper [Preservision Areds] 1 TABLET) PO SCH (09:00)
[2019-09-07] MEDS ORDERED: Non-Formulary Item 1 EACH (Insulin Detemir 100 Units/Ml [Levemir] 20 UNIT) SQ SCH (09:00)
[2019-09-07] MEDS ORDERED: HYPROMELLOSE EA EYE SCH (09:00)
[2019-09-07] MEDS ORDERED: Non-Formulary Item 1 EACH (Losartan Potassium [Cozaar] 50 MG) PO SCH (09:00)
[2019-09-07] MEDS ORDERED: FOLIC ACID 1 MG PO SCH (09:00)
[2019-09-07] MEDS ORDERED: Nystatin Powder 15 GM BOT TOP SCH (09:00)
[2019-09-07] MEDS ORDERED: CRANBERRY PO SCH (09:00)
[2019-09-07] MEDS ORDERED: DEXTRAN EA EYE SCH (09:00)
[2019-09-07] MEDS ORDERED: Non-Formulary Item 1 EACH (Memantine Hcl [Namenda Xr] 28 MG) PO SCH (09:00)
[2019-09-07] MEDS: Aspirin 81 mg Enteric Coated Tablet PO SCH (09:59)
[2019-09-07] MEDS: Artificial Tears 18 DROP/0.9 ML EA EYE SCH ×2 (09:59→22:51)
[2019-09-07] MEDS: Apixaban 5 MG TAB PO SCH ×2 (09:59→22:50)
[2019-09-07] MEDS: Cyanocobalamin (Vitamin B-12) 1,000 MCG TAB PO SCH (10:00)
[2019-09-07] MEDS: Folic Acid 1 MG TAB PO SCH (10:00)
[2019-09-07] MEDS: Carvedilol 3.125 MG TAB PO SCH ×2 (10:00→22:50)
[2019-09-07] MEDS: hydrALAZINE 25 MG TAB PO SCH ×2 (10:00→22:50)
[2019-09-07] MEDS: Losartan 25 MG TAB PO SCH (10:00)
[2019-09-07] MEDS: Nystatin Powder 15 GM BOT TOP SCH ×2 (10:01→22:50)
[2019-09-07] MEDS: Loteprednol Etabonate 0.5% Ophth Suspension 5 ml Bottle EA EYE SCH ×2 (10:01→22:51)
[2019-09-07] MEDS: Oseltamivir 75 MG CAP PO SCH ×2 (10:02→22:50)
[2019-09-07] MEDS: Potassium Chloride 20 MEQ TAB PO SCH (10:02)
[2019-09-07] MEDS: Rivastigmine 9.5mg/24 Hour PATCH TOP SCH (10:02)
[2019-09-07] MEDS: Vit A,C & E/Lutein/Minerals Tablet PO SCH ×2 (10:02→22:50)
[2019-09-07] MEDS: CRANBERRY PO SCH (10:03)
[2019-09-07] MEDS: Insulin Glargine 10 UNITS in Pre-Filled Syringe 1 EACH SC SCH (10:34)
[2019-09-07] MEDS: cloNIDine 0.1mg/24 Hour PATCH TD SCH ×2 (10:34→19:19)
[2019-09-07] MEDS: cefTRIAXone\\ROCEPHIN 1 GM in Sodium Chloride 0.9% 100 ML IVPB SCH (10:51)
[2019-09-07] MEDS: Azithromycin 500 MG in Sodium Chloride 0.9% 250 ML 250 ML IVPB SCH (12:10)
[2019-09-07] MEDS: Dextrose 5 %-0.45 % NaCl 1,000 ML IV SCH (19:19)
[2019-09-07] MEDS: Pravastatin Sodium 20 MG TAB PO SCH (22:49)
--- NOTE | 2019-09-08 08:37 | PDOC.HOSPP ---
- Subjective Encounter Date: 09/08/19 Encounter Time: 12:00 Subjective: Patient feeling a bit better, but still very fatigued. SOB and cough improving. - Objective Vital Signs & Weight: Vital Signs (12 hours) Temp Pulse Resp BP BP Pulse Ox 09/08/19 03:15 98.0 F 107 H 18 161/78 H 97 09/08/19 00:00 105 H 20 162/79 H 94 L 09/07/19 22:50 110 H Weight Weight 154 lb I&O: 09/07/19 09/08/19 09/09/19 06:59 06:59 06:59 Intake Total 1200 1550 Output Total 100 Balance 1100 1550 Result Diagrams: 09/07/19 04:40 09/07/19 04:40 Additional Labs: Accuchecks 09/08/19 09/07/19 09/07/19 05:40 20:15 16:32 POC Glucose 155 H 198 H 193 H 09/07/19 10:40 POC Glucose 261 H Hospitalist ROS - Review of Systems Constitutional: denies: fever, chills Respiratory: reports: cough, shortness of breath Cardiovascular: denies: chest pain, palpitations Gastrointestinal: denies: nausea, vomiting, abdominal pain - Medication Medications: Active Medications Generic Name Dose Route Start Last Admin Trade Name Freq PRN Reason Stop Dose Admin Apixaban 5 mg 09/07/19 09:00 09/07/19 22:50 Eliquis PO 5 mg BID [place] Administration Artificial Tears 1 drop 09/07/19 09:00 09/07/19 22:51 Tears Naturale EA EYE 1 drop BID [place] Administration Aspirin 81 mg 09/07/19 09:00 09/07/19 09:59 Ecotrin PO 81 mg DAILY [place] Administration Carvedilol 3.125 mg 09/07/19 09:00 09/07/19 22:50 Coreg PO 3.125 mg BID [place] Administration Clonidine 0.1 mg 09/07/19 09:00 09/07/19 19:19 [id number]-[id number]-4 Patch TD 0.1 mg Q7DAYS [place] Administration Cyanocobalamin 1,000 mcg 09/07/19 09:00 09/07/19 10:00 Vitamin B-12 PO 1,000 mcg DAILY [place] Administration Folic Acid 1 mg 09/07/19 09:00 09/07/19 10:00 Folvite PO 1 mg DAILY [place] Administration Hydralazine HCl 25 mg 09/07/19 09:00 09/07/19 22:50 Apresoline PO 25 mg BID [place] Administration Azithromycin 500 mg/ Sodium 250 mls @ 250 mls/hr 09/07/19 12:00 09/07/19 12: 10 Chloride IVPB 250 mls 1200 [place] Administration Ceftriaxone Sodium 1 gm/ 100 mls @ 200 mls/hr 09/07/19 11:00 09/07/19 10:51 Sodium Chloride IVPB 100 mls 1100 [place] Administration Dextrose/Sodium Chloride 1,000 mls @ 40 mls/hr 09/06/19 19:00 09/07/19 19:19 D5 1/2 Ns IV 1,000 mls .Q24H [place] Administration Insulin Glargine 10 units/ 0.1 mls @ 0 mls/hr 09/07/19 09:00 09/07/19 10:34 Miscellaneous Medication SC Not Given DAILY [place] Losartan Potassium 50 mg 09/07/19 09:00 09/07/19 10:00 Cozaar PO 50 mg DAILY [place] Administration Loteprednol Etabonate 1 drop 09/07/19 09:00 09/07/19 22:51 Lotemax 0.5% Ophth Suspension EA EYE 1 drop BID [place] Administration Memantine 10 mg 09/07/19 09:00 09/07/19 22:50 Namenda PO 10 mg BID [place] Administration Multivitamins/Minerals 1 tab 09/07/19 09:00 09/07/19 22:50 Ocuvite With Lutein PO 1 tab BID [place] Administration Nystatin 0 gm 09/07/19 09:00 09/07/19 22:50 Mycostatin Powder TOP 1 unit BID [place] Administration Oseltamivir Phosphate 75 mg 09/07/19 09:00 09/07/19 22:50 Tamiflu PO 09/11/19 21:01 75 mg BID [place] Administration [Cranberry] 100 Mg 0 each 09/07/19 09:00 09/07/19 10:03 PO Not Given DAILY [place] Potassium Chloride 20 meq 09/07/19 09:00 09/07/19 10:02 K-Dur PO 20 meq DAILY [place] Administration Pravastatin Sodium 10 mg 09/07/19 21:00 09/07/19 22:49 Pravachol PO 10 mg HS [place] Administration Rivastigmine 9.5 mg 09/07/19 09:00 09/07/19 10:02 Exelon Patch TOP 9.5 mg DAILY [place] Administration Sodium Chloride 10 ml 09/06/19 21:00 09/07/19 22:51 Flush - Normal Saline IVF 10 ml Q12HR [place] Administration - Exam General Appearance: NAD ENT: moist mucosa Heart: RRR, no murmur, no gallops, no rubs Respiratory: CTAB, no wheezes, no rales, no ronchi Gastrointestinal: soft, non-tender, non-distended, normal bowel sounds Psychiatric: normal affect, normal behavior, A&O x 3 Hosp A/P (1) Pneumonia Code(s): J18.9 - PNEUMONIA, UNSPECIFIED ORGANISM Status: Acute Qualifiers: Laterality: right Lung location: lower lobe of lung (2) Influenza A Code(s): J10.1 - FLU DUE TO OTH IDENT INFLUENZA VIRUS W OTH RESP MANIFEST Status: Acute (3) HTN (hypertension) Code(s): I10 - ESSENTIAL (PRIMARY) HYPERTENSION Status: Acute (4) T2DM (type 2 diabetes mellitus) Status: Acute (5) Hypokalemia Code(s): E87.6 - HYPOKALEMIA Status: Acute (6) Hypoglycemia Code(s): E16.2 - HYPOGLYCEMIA, UNSPECIFIED Status: Resolved (7) Chronic anticoagulation Code(s): Z79.01 - INSTRUCTIONAL ASSISTANT (CURRENT) USE OF ANTICOAGULANTS Status: Chronic (8) Chronic atrial fibrillation Code(s): I48.2 - CHRONIC ATRIAL FIBRILLATION * DO NOT USE * Status: Chronic - Plan Patient positive for Flu A. CXR this AM confirms RLL pneumonia. Not severe with no leukocytosis so I doubt staph. Giving Rocephin and Azithromycin. Will transition to oral antibiotics. Severe hypoglycemic episode 09/06/19 afternoon. Resolved with glucose. Blood sugars normalized since on lower dose insulin. Likely discharge tomorrow. Ambulating well. Lives at assisted living.
[2019-09-08] MEDS: hydrALAZINE 25 MG TAB PO SCH ×2 (09:24→22:30)
[2019-09-08] MEDS: Apixaban 5 MG TAB PO SCH ×2 (09:24→22:30)
[2019-09-08] MEDS: Aspirin 81 mg Enteric Coated Tablet PO SCH (09:24)
[2019-09-08] MEDS: Vit A,C & E/Lutein/Minerals Tablet PO SCH ×2 (09:24→22:30)
[2019-09-08] MEDS: Carvedilol 3.125 MG TAB PO SCH ×2 (09:24→22:29)
[2019-09-08] MEDS: Losartan 25 MG TAB PO SCH (09:25)
[2019-09-08] MEDS: Oseltamivir 75 MG CAP PO SCH (09:25)
[2019-09-08] MEDS: Potassium Chloride 20 MEQ TAB PO SCH (09:26)
[2019-09-08] MEDS: Folic Acid 1 MG TAB PO SCH (09:26)
[2019-09-08] MEDS: Cyanocobalamin (Vitamin B-12) 1,000 MCG TAB PO SCH (09:26)
[2019-09-08] MEDS: Nystatin Powder 15 GM BOT TOP SCH ×2 (09:38→22:30)
[2019-09-08] MEDS: Artificial Tears 18 DROP/0.9 ML EA EYE SCH ×2 (09:39→22:31)
[2019-09-08] MEDS: Loteprednol Etabonate 0.5% Ophth Suspension 5 ml Bottle EA EYE SCH ×2 (09:39→22:31)
[2019-09-08] MEDS: Insulin Glargine 10 UNITS in Pre-Filled Syringe 1 EACH SC SCH (09:56)
[2019-09-08] MEDS: CRANBERRY PO SCH (09:57)
[2019-09-08] MEDS: Rivastigmine 9.5mg/24 Hour PATCH TOP SCH (10:17)
[2019-09-08] MEDS: cefTRIAXone\\ROCEPHIN 1 GM in Sodium Chloride 0.9% 100 ML IVPB SCH (11:42)
[2019-09-08] MEDS: Azithromycin 500 MG in Sodium Chloride 0.9% 250 ML 250 ML IVPB SCH (12:28)
[2019-09-08] MEDS: HumaLOG 300 UNITS/3 ML VIAL SC PRN (12:41)
[2019-09-08] MEDS: Sodium Chloride 0.45% 1,000 ML IV SCH (17:10)
[2019-09-08] MEDS: Pravastatin Sodium 20 MG TAB PO SCH (22:29)
[2019-09-08] MEDS: Cefdinir 300 MG CAP PO SCH (22:30)
--- NOTE | 2019-09-09 08:33 | PDOC.HOSPP ---
- Subjective Encounter Date: 09/09/19 Encounter Time: 11:00 Subjective: Patient reports slow improvement. No Fever. Cough resolved. Mildly improved strength. - Objective Vital Signs & Weight: Vital Signs (12 hours) Temp Pulse Resp BP Pulse Ox 09/09/19 07:08 96 09/09/19 07:07 97.9 F 90 14 177/83 H 96 09/09/19 05:00 98.1 F 101 H 20 175/86 H 96 09/08/19 22:30 110 H 09/08/19 21:00 98.3 F 110 H 18 156/84 H 97 Weight Weight 154 lb I&O: 09/08/19 09/09/19 09/10/19 06:59 06:59 06:59 Intake Total 1550 1374 Balance 1550 1374 Result Diagrams: 09/07/19 04:40 09/07/19 04:40 Additional Labs: Accuchecks 09/09/19 09/08/19 09/08/19 04:50 22:27 17:10 POC Glucose 134 H 156 H 184 H 09/08/19 09/08/19 16:57 12:41 POC Glucose 159 H 262 H Hospitalist ROS - Review of Systems Constitutional: denies: fever, chills Respiratory: denies: cough, shortness of breath Cardiovascular: denies: chest pain, palpitations Gastrointestinal: denies: nausea, vomiting, abdominal pain - Medication Medications: Active Medications Generic Name Dose Route Start Last Admin Trade Name Freq PRN Reason Stop Dose Admin Apixaban 5 mg 09/07/19 09:00 09/08/19 22:30 Eliquis PO 5 mg BID [place] Administration Artificial Tears 1 drop 09/07/19 09:00 09/08/19 22:31 Tears Naturale EA EYE 1 drop BID [place] Administration Aspirin 81 mg 09/07/19 09:00 09/08/19 09:24 Ecotrin PO 81 mg DAILY [place] Administration Carvedilol 3.125 mg 09/07/19 09:00 09/08/19 22:29 Coreg PO 3.125 mg BID [place] Administration Cefdinir 300 mg 09/08/19 21:00 09/08/19 22:30 Omnicef PO 09/12/19 09:01 300 mg BID [place] Administration Clonidine 0.1 mg 09/07/19 09:00 09/07/19 19:19 [id number]-[id number] Patch TD 0.1 mg Q7DAYS [place] Administration Cyanocobalamin 1,000 mcg 09/07/19 09:00 09/08/19 09:26 Vitamin B-12 PO 1,000 mcg DAILY [place] Administration Folic Acid 1 mg 09/07/19 09:00 09/08/19 09:26 Folvite PO 1 mg DAILY [place] Administration Hydralazine HCl 25 mg 09/07/19 09:00 09/08/19 22:30 Apresoline PO 25 mg BID [place] Administration Insulin Glargine 10 units/ 0.1 mls @ 0 mls/hr 09/07/19 09:00 09/08/19 09:56 Miscellaneous Medication SC Not Given DAILY [place] Sodium Chloride 1,000 mls @ 50 mls/hr 09/08/19 16:00 09/08/19 17:10 1/2 Normal Saline IV 1,000 mls .Q20H [place] Administration Insulin Human Lispro 0 units 09/06/19 20:48 09/08/19 12:41 Humalog SC 4 unit .MILD SLIDING SCALE PRN Administration Mild Correctional Scale Losartan Potassium 50 mg 09/07/19 09:00 09/08/19 09:25 Cozaar PO 50 mg DAILY [place] Administration Loteprednol Etabonate 1 drop 09/07/19 09:00 09/08/19 22:31 Lotemax 0.5% Ophth Suspension EA EYE 1 drop BID [place] Administration Memantine 10 mg 09/07/19 09:00 09/08/19 22:30 Namenda PO 10 mg BID [place] Administration Multivitamins/Minerals 1 tab 09/07/19 09:00 09/08/19 22:30 Ocuvite With Lutein PO 1 tab BID [place] Administration Nystatin 0 gm 09/07/19 09:00 09/08/19 22:30 Mycostatin Powder TOP 1 applic BID [place] Administration [Cranberry] 100 Mg 0 each 09/07/19 09:00 09/08/19 09:57 PO Not Given DAILY [place] Potassium Chloride 20 meq 09/07/19 09:00 09/08/19 09:26 K-Dur PO 20 meq DAILY [place] Administration Pravastatin Sodium 10 mg 09/07/19 21:00 09/08/19 22:29 Pravachol PO 10 mg HS [place] Administration Rivastigmine 9.5 mg 09/07/19 09:00 09/08/19 10:17 Exelon Patch TOP 9.5 mg DAILY [place] Administration Sodium Chloride 10 ml 09/06/19 21:00 09/08/19 22:30 Flush - Normal Saline IVF 10 ml Q12HR [place] Administration - Exam General Appearance: NAD, awake alert ENT: moist mucosa Heart: RRR, no murmur, no gallops, no rubs Respiratory: CTAB, no wheezes, no rales, no ronchi Gastrointestinal: soft, non-tender, non-distended, normal bowel sounds Psychiatric: normal affect, normal behavior Psychiatric - other findings: a bit groggy b/c woke up from nap, cleared well after few min Hosp A/P (1) Pneumonia Code(s): J18.9 - PNEUMONIA, UNSPECIFIED ORGANISM Status: Acute Qualifiers: Laterality: right Lung location: lower lobe of lung (2) Influenza A Code(s): J10.1 - FLU DUE TO OTH IDENT INFLUENZA VIRUS W OTH RESP MANIFEST Status: Acute (3) HTN (hypertension) Code(s): I10 - ESSENTIAL (PRIMARY) HYPERTENSION Status: Acute (4) T2DM (type 2 diabetes mellitus) Status: Acute (5) Hypokalemia Code(s): E87.6 - HYPOKALEMIA Status: Acute (6) Hypoglycemia Code(s): E16.2 - HYPOGLYCEMIA, UNSPECIFIED Status: Resolved (7) Chronic anticoagulation Code(s): Z79.01 - SENIOR CARE (CURRENT) USE OF ANTICOAGULANTS Status: Chronic (8) Chronic atrial fibrillation Code(s): I48.2 - CHRONIC ATRIAL FIBRILLATION * DO NOT USE * Status: Chronic - Plan Patient positive for Flu A. Oseltamivir until 09/11/19. CXR confirmed RLL pneumonia. Not severe with no leukocytosis so I doubt staph. Giving Rocephin and Azithromycin. Transitioned to oral antibiotics. Severe hypoglycemic episode 09/06/19 afternoon. Resolved with glucose. Blood sugars normalized since on lower dose insulin. D/c back to assisted living today.
[2019-09-09] MEDS ORDERED: Azithromycin 250 MG TAB PO SCH (09:00)
[2019-09-09] MEDS ORDERED: Oseltamivir 75 MG CAP PO SCH (09:00)
[2019-09-09] MEDS: Losartan 25 MG TAB PO SCH (09:11)
[2019-09-09] MEDS: Carvedilol 3.125 MG TAB PO SCH (09:11)
[2019-09-09] MEDS: hydrALAZINE 25 MG TAB PO SCH (09:12)
[2019-09-09] MEDS: Aspirin 81 mg Enteric Coated Tablet PO SCH (09:12)
[2019-09-09] MEDS: Cyanocobalamin (Vitamin B-12) 1,000 MCG TAB PO SCH (09:12)
[2019-09-09] MEDS: Cefdinir 300 MG CAP PO SCH (09:12)
[2019-09-09] MEDS: Nystatin Powder 15 GM BOT TOP SCH (09:14)
[2019-09-09] MEDS: Potassium Chloride 20 MEQ TAB PO SCH (09:14)
[2019-09-09] MEDS: Apixaban 5 MG TAB PO SCH (09:14)
[2019-09-09] MEDS: Folic Acid 1 MG TAB PO SCH (09:14)
[2019-09-09] MEDS: Loteprednol Etabonate 0.5% Ophth Suspension 5 ml Bottle EA EYE SCH (09:15)
[2019-09-09] MEDS: Artificial Tears 18 DROP/0.9 ML EA EYE SCH (09:15)
[2019-09-09] MEDS: Vit A,C & E/Lutein/Minerals Tablet PO SCH (09:50)
[2019-09-09] MEDS: Rivastigmine 9.5mg/24 Hour PATCH TOP SCH (09:50)
[2019-09-09] MEDS: CRANBERRY PO SCH (09:51)
[2019-09-09] MEDS: Insulin Glargine 10 UNITS in Pre-Filled Syringe 1 EACH SC SCH (09:51)
[2019-09-09] MEDS: Sodium Chloride 0.45% 1,000 ML IV SCH (11:49)
[2019-09-09] MEDS: HumaLOG 300 UNITS/3 ML VIAL SC PRN (12:31)
[2019-09-09 15:46] VITALS: BP 158/71; TEMP 98.2
--- NOTE | 2019-09-10 12:01 | DIS ---
DATE OF ADMISSION: 09/07/2019 DATE OF DISCHARGE: 09/09/2019 PRIMARY CARE PHYSICIAN: CANDIS Menon, who I believe works for Dr. Abel. REASON FOR ADMISSION: Cough, shortness of breath. DIAGNOSES AT DISCHARGE: 1. Influenza type A. 2. Pneumonia. 3. Hypertension. 4. Diabetes mellitus type 2. 5. Hypokalemia. 6. Hypoglycemia, resolved. 7. Chronic anticoagulation. 8. Chronic atrial fibrillation. 9. Mild underlying dementia. PROCEDURES: Chest x-ray, PA and lateral, showing increased linear and interstitial markings bilaterally, more prominent in the right lower lobe, concerning for some right lower lobe pneumonia or pneumonitis. CONSULTATIONS: None. SUMMARY OF HOSPITAL COURSE: This is an 83-year-old lady with a history of diabetes, atrial fibrillation, hypertension from assisted living with a cough. She is also on some medicines for early dementia. There was some question of a possible pneumonia on her chest x-ray ordered by the nurse practitioner, so she was sent over here for evaluation. She had been having the cough for about a week. No fevers. She was evaluated in the emergency room, started on antibiotics and put in observation in the hospital. Repeat chest x-ray confirmed pneumonia and the patient also had some significant hypoglycemia due to poor p.o. intake. Her insulin was decreased. She was admitted and continued on IV antibiotics. One of her flu test did come back positive, so she was started on oseltamivir as well. She slowly improved during her hospitalization, still not eating, back to normal, so she is still on a half dose of insulin, but saturating well on room air and ambulating around her room and she is being cleared to discharge back to assisted living. DISCHARGE MANAGEMENT: Discharged back to home. ACTIVITY: As tolerated. DIET: Diabetic diet. FOLLOWUP: Follow up with her nurse practitioner in 7 days. DISCHARGE MEDICATIONS: 1. Azithromycin 250 mg daily for one more day for a total five days of antibiotics. 2. Cefdinir 300 mg twice a day for three more days for a total of seven days of antibiotics. 3. Oseltamivir 75 mg twice a day for 2-1/2 more days for a total of 5 days of treatment. 4. Decrease Levemir to 10 units daily until eating better and then back up to 20. 5. Acetaminophen as needed. 6. Eliquis 5 mg twice a day. 7. Aspirin 81 mg daily. 8. Dulcolax suppository daily as needed. 9. Carvedilol 3.125 mg twice a day. 10. Clonidine patch 0.1 mg transdermal every week. 11. Vitamin B12, 1000 mcg daily. 12. Tears Naturale Forte drops one drop in each eye twice a day. 13. Docusate calcium 240 mg twice a day as needed for constipation. 14. Folic acid 1 mg daily. 15. Hydralazine 25 mg twice a day. 16. Losartan 50 mg daily. 17. Lotemax ophthalmic suspension one drop in each eye twice a day. 18. Milk of magnesia as needed. 19. Namenda XR 28 mg daily. 20. Nitrostat as needed. 21. Nystatin powder 1 unit applied twice a day to umbilicus. 22. MiraLAX 17 g daily as needed for constipation. 23. Potassium chloride 20 mEq daily. 24. Pravastatin 10 mg at night. 25. Exelon patch 9.5 mg topically applied daily. 26. PreserVision AREDS one tablet twice a day. 27. Bromfenac sodium one drop in each eye daily as needed for inflammation. 28. Cranberry 100 mg daily. 29. Dextrose as needed. TIME SPENT: Arranging the details of this discharge took 35 minutes. Job ID: [id number]
== END 2019-09-09 17:36 | disposition home or self-care (01) | DRG 194 ==
LOC: ERS 10:28 → 2SW 12:27 → OBSVTOIN 09-07 12:05 → 2NO 09-07 15:27
PROVIDERS: ADMIT Internal Medicine; ATTEND Emergency Medicine
DX: J10.00 Influenza due to other identified influenza virus with unspecified type of pneumonia (principal); I48.20 Chronic atrial fibrillation, unspecified; I10 Essential (primary) hypertension; E87.6 Hypokalemia; E11.649 Type 2 diabetes mellitus with hypoglycemia without coma; F03.90 Unspecified dementia, unspecified severity, without behavioral disturbance, psychotic disturbance, mood disturbance, and anxiety; Z79.01 Long term (current) use of anticoagulants; Z88.0 Allergy status to penicillin; Z79.899 Other long term (current) drug therapy; Z79.4 Long term (current) use of insulin
CPT/HCPCS: 36415; 36416; 71045; 71046; 80048; 80053; 82553; 83605; 83735; 83880; 84484; 85025; 87040; 87070; 87205; 87449; 87633; 87798; 87804; 87899; 93005; 96365; 96367; J0456; J0696; J1815; J3490; J7042; J7050

== ENCOUNTER 2021-12-08 15:36 | Inpatient (IN) | payer MEDICARE, BC ==
[2021-12-08 16:36] LABS: #Eosinphils 0.2 thou/uL (0.0-0.7); #Lymphocytes 1.2 thou/uL (1.20-3.40); #Monocytes 0.4 thou/uL (0.11-0.59); #Neutrophils 5.3 thou/uL (1.40-6.50); %Basophils 0.3 % (0.0-1.0); %Eosinophils 2.8 % (0.0-10.0); %Lymphocytes 17.4 % (21.0-51.0); %Monocytes 5.3 % (0.0-10.0); %Neutrophils 74.2 % (42.0-75.0); Hemoglobin 11.7 g/dL (12.0-16.0); Mean Corpuscular HGB CONC 32.5 g/dL (32.0-36.0); Mean Corpuscular Hemoglobin 30.5 pg (27.0-31.0); Mean Corpuscular Volume 93.8 fL (78.0-98.0); Mean Platelet Volume 7.7 fL (7.4-10.4); Platelet Count 208 thou/uL (130-400); RBC Distribution Width 14.1 % (11.5-14.5); Red Blood Cell (RBC) Count 3.83 mill/uL (4.20-5.40); White Blood Cell (WBC) Count 7.1 thou/uL (4.8-10.8)
[2021-12-08 16:58] LABS: ALT (SGPT) 13 U/L (8-55); AST (SGOT) 20 U/L (5-34); Albumin 3.8 g/dL (3.4-4.8); Alkaline Phosphatase 86 U/L (40-110); Anion Gap 16 mmol/L (10-20); BUN (Urea Nitrogen) 30 mg/dL (9.8-20.1); Bilirubin, Total 0.6 mg/dL (0.2-1.2); Calc. Creatinine Clearance 0 mL/min (70-130); Calcium 9.3 mg/dL (7.8-10.44); Carbon Dioxide 25 mmol/L (23-31); Chloride 102 mmol/L (98-107); Globulin 4.2 g/dL (2.4-3.5); Glucose 199 mg/dL (83-110); Sodium 139 mmol/L (136-145)
[2021-12-08] MEDS ORDERED: Ondansetron PF 4 MG/2 ML Vial IVP PRN (17:57)
[2021-12-08] MEDS ORDERED: Morphine 2 MG/ML VIAL SLOW IVP PRN (17:57)
[2021-12-08] MEDS ORDERED: Promethazine HCl 25 MG/ML VIAL IM PRN (17:57)
[2021-12-08] MEDS ORDERED: Sodium Chloride 0.9% 1,000 ML IV SCH ×2 (18:00→18:16)
[2021-12-08] MEDS ORDERED: traMADol HCl 50 MG TAB PO SCH (18:00)
[2021-12-08] MEDS ORDERED: Sodium Chloride 0.9% 500 ML IV SCH (18:15)
[2021-12-08 18:33] LABS: Troponin I 0.014 ng/mL (< 0.028)
[2021-12-08] MEDS ORDERED: Digoxin 0.5 MG/2 ML AMP ONE (19:30)
[2021-12-08] MEDS ORDERED: Digoxin 0.5 MG/2 ML AMP SLOW IVP SCH (19:30)
[2021-12-08] MEDS ORDERED: Nitroglycerin 0.4 MG TAB (25 Tab Bottle) SL PRN (20:58)
[2021-12-08] MEDS ORDERED: Polyethylene Glycol 3350 17 GM Packet PO PRN (20:58)
[2021-12-08] MEDS ORDERED: Furosemide 40 MG/4 ML VIAL SLOW IVP SCH (21:00)
[2021-12-08] MEDS ORDERED: Famotidine/PF 20 mg/2ml Vial SLOW IVP SCH (21:00)
[2021-12-08 22:22] LABS: SARS-CoV-2 NAA Rapid Test Not Detected (NotDetected)
[2021-12-08] MEDS: hydrALAZINE 25 MG TAB PO SCH (23:15)
[2021-12-08] MEDS: Senokot S 8.6-50 MG TAB PO SCH (23:16)
[2021-12-09] MEDS: Acetaminophen 500 MG TAB PO SCH ×5 (00:05→17:34)
[2021-12-09] MEDS: traMADol HCl 50 MG TAB PO SCH ×4 (00:05→17:34)
[2021-12-09] MEDS ORDERED: Labetalol HCl 100 MG/20 ML VIAL SLOW IVP PRN (02:17)
[2021-12-09] MEDS ORDERED: hydrALAZINE 20 MG/ML VIAL SLOW IVP STA (02:32)
[2021-12-09 02:45] VITALS: BMI 28.1
[2021-12-09 06:03] LABS: #Lymphocytes 1.1 thou/uL (1.20-3.40); #Monocytes 0.4 thou/uL (0.11-0.59); #Neutrophils 6.8 thou/uL (1.40-6.50); %Basophils 0.2 % (0.0-1.0); %Eosinophils 0.1 % (0.0-10.0); %Monocytes 5.1 % (0.0-10.0); %Neutrophils 81.6 % (42.0-75.0); Hemoglobin 10.7 g/dL (12.0-16.0); Mean Corpuscular HGB CONC 31.9 g/dL (32.0-36.0); Mean Corpuscular Hemoglobin 30.2 pg (27.0-31.0); Mean Corpuscular Volume 94.7 fL (78.0-98.0); Platelet Count 181 thou/uL (130-400); Red Blood Cell (RBC) Count 3.55 mill/uL (4.20-5.40); White Blood Cell (WBC) Count 8.4 thou/uL (4.8-10.8)
[2021-12-09 06:24] LABS: Phosphorus 3.4 mg/dL (2.3-4.7)
[2021-12-09 06:27] LABS: Anion Gap 15 mmol/L (10-20); BUN (Urea Nitrogen) 26 mg/dL (9.8-20.1); Calc. Creatinine Clearance 41 mL/min (70-130); Calcium 8.9 mg/dL (7.8-10.44); Carbon Dioxide 25 mmol/L (23-31); Chloride 101 mmol/L (98-107); Glucose 279 mg/dL (83-110); Magnesium 1.8 mg/dL (1.6-2.6); Potassium 3.6 mmol/L (3.5-5.1); Sodium 137 mmol/L (136-145)
[2021-12-09 07:31] LABS: Bilirubin Negative (Negative); Blood, Urine 1+ (Negative); Clarity Clear (Clear); Glucose, Urine (Dipstick) 70 mg/dL (Negative); Ketone, Urine 20 mg/dL (Negative); Leukocyte Negative Leu/uL (Negative); Nitrite Negative (Negative); Protein, Urine (Dipstick) Negative (Neg-Trace); Squamous Epithelial None Seen HPF (0-3); Urobilinogen Normal mg/dL (Less than 2); WBC/HPF 0-3 HPF (0-3)
[2021-12-09 07:54] LABS: Bacteria/HPF Rare-Few HPF (None Seen)
[2021-12-09 07:55] LABS: Urine Culture Reflex No No
[2021-12-09] MEDS ORDERED: Magnesium Sulfate 3 GM in Sodium Chloride 0.9% 100 ML IVPB SCH (08:00)
[2021-12-09] MEDS ORDERED: Potassium Phosphate 30 MMOL in Sodium Chloride 0.9% 250 ML 250 ML IVPB SCH (08:00)
[2021-12-09] MEDS ORDERED: Clindamycin/D5W 900 MG in Premix Bag 1 BAG IVPB SCH (08:00)
[2021-12-09] MEDS: Polyethylene Glycol 3350 17 GM Packet PO SCH (08:27)
[2021-12-09] MEDS: hydrALAZINE 25 MG TAB PO SCH ×2 (08:45→22:04)
[2021-12-09] MEDS: Multivitamin W/ Minerals 1 TAB PO SCH (08:45)
[2021-12-09] MEDS: Carvedilol 3.125 MG TAB PO SCH ×2 (08:45→17:34)
[2021-12-09] MEDS: Senokot S 8.6-50 MG TAB PO SCH ×2 (08:45→22:05)
[2021-12-09] MEDS ORDERED: Furosemide 20 MG TAB PO SCH (09:00)
[2021-12-09] MEDS ORDERED: traMADol HCl 50 MG TAB PO PRN (10:33)
[2021-12-09] MEDS ORDERED: Famotidine/PF 20 mg/2ml Vial SLOW IVP SCH (21:00)
[2021-12-09] MEDS ORDERED: Lorazepam 2 MG/ML VIAL SLOW IVP PRN (21:53)
[2021-12-10] MEDS: Acetaminophen 500 MG TAB PO SCH ×3 (00:04→12:01)
[2021-12-10] MEDS: traMADol HCl 50 MG TAB PO SCH ×2 (03:01→12:02)
[2021-12-10] MEDS: hydrALAZINE 25 MG TAB PO SCH ×2 (09:49→21:23)
[2021-12-10] MEDS: Multivitamin W/ Minerals 1 TAB PO SCH ×2 (09:49→11:20)
[2021-12-10] MEDS: Carvedilol 3.125 MG TAB PO SCH (09:49)
[2021-12-10] MEDS: Polyethylene Glycol 3350 17 GM Packet PO SCH (09:50)
[2021-12-10] MEDS: Senokot S 8.6-50 MG TAB PO SCH ×2 (09:50→21:17)
[2021-12-10] MEDS ORDERED: hydrALAZINE 20 MG/ML VIAL SLOW IVP SCH (11:15)
[2021-12-10] MEDS ORDERED: fentaNYL Citrate/PF 100 MCG/2 ML SYRINGE ONE (12:12)
[2021-12-10] MEDS ORDERED: Ketamine 50 MG/ML (10ML VIAL) ONE (12:52)
[2021-12-10] MEDS ORDERED: Phenylephrine 10 MG/ML VIAL ONE (12:52)
[2021-12-10] MEDS ORDERED: PHENYLEPHRINE-NS 100 MCG/ML 10 ML SYRINGE ONE (13:00)
[2021-12-10] MEDS ORDERED: Rocuronium Bromide 10 MG/ML (10ML VIAL) ONE (13:00)
[2021-12-10] MEDS ORDERED: Lidocaine 1% PF 5 ML VIAL ONE (13:00)
[2021-12-10] MEDS ORDERED: Glycopyrrolate 0.2 MG/ML 5 ML SYRINGE ONE (13:00)
[2021-12-10] MEDS ORDERED: Levofloxacin 500 mg/D5W 100 ml Premix Bag ONE (13:00)
[2021-12-10] MEDS ORDERED: Succinylcholine 200 MG/10 ml SYRINGE FS ONE (13:00)
[2021-12-10] MEDS ORDERED: Clindamycin/D5W 900 mg/50 ml Premix Bag ONE (13:00)
[2021-12-10] MEDS ORDERED: PROPOFOL 200 MG/20 ML VIAL ONE (13:00)
[2021-12-10] MEDS ORDERED: SUGAMMADEX SODIUM 200 MG/2 ML VIAL ONE (14:06)
[2021-12-10] MEDS ORDERED: Sodium Chloride 0.9% 1,000 ML IV SCH (14:30)
[2021-12-10] MEDS ORDERED: Promethazine HCl 25 MG/ML VIAL IVPB PRN (14:42)
[2021-12-10] MEDS ORDERED: Promethazine HCl 25 MG/ML VIAL IM PRN (14:42)
[2021-12-10] MEDS ORDERED: Ondansetron HCl/PF 4 MG/2 ML Vial IVP PRN (14:42)
[2021-12-10] MEDS ORDERED: HYDROmorphone 2 MG/ML VIAL SLOW IVP PRN (14:42)
[2021-12-10] MEDS: Sodium Chloride 0.9% 1,000 ML IV SCH (14:46)
[2021-12-10] MEDS: Acetaminophen/Codeine 30-300mg Tablet PO SCH ×2 (14:46→21:16)
[2021-12-10] MEDS: Clindamycin/D5W 900 MG in Premix Bag 1 BAG IVPB SCH (21:22)
[2021-12-10] MEDS: Carvedilol 25 MG TAB PO SCH (21:23)
[2021-12-11] MEDS: Acetaminophen/Codeine 30-300mg Tablet PO SCH ×4 (02:13→21:35)
[2021-12-11] MEDS: Cyclobenzaprine 10 MG TAB PO PRN (03:44)
[2021-12-11] MEDS: Sodium Chloride 0.9% 1,000 ML IV SCH (03:44)
[2021-12-11] MEDS: Clindamycin/D5W 900 MG in Premix Bag 1 BAG IVPB SCH ×2 (06:17→15:13)
[2021-12-11] MEDS: hydrALAZINE 25 MG TAB PO SCH ×2 (10:30→21:35)
[2021-12-11] MEDS: Famotidine 20 MG TAB PO SCH ×2 (10:30→21:42)
[2021-12-11] MEDS: Polyethylene Glycol 3350 17 GM Packet PO SCH (10:30)
[2021-12-11] MEDS: Carvedilol 25 MG TAB PO SCH ×2 (10:31→21:35)
[2021-12-11] MEDS: Furosemide 20 MG TAB PO SCH (10:31)
[2021-12-11] MEDS: Senokot S 8.6-50 MG TAB PO SCH ×2 (10:31→21:36)
[2021-12-11] MEDS: Multivitamin W/ Minerals 1 TAB PO SCH (10:31)
[2021-12-11 12:01] LABS: #Lymphocytes 0.9 thou/uL (1.20-3.40); #Monocytes 0.7 thou/uL (0.11-0.59); #Neutrophils 6.7 thou/uL (1.40-6.50); %Eosinophils 0.1 % (0.0-10.0); %Lymphocytes 10.5 % (21.0-51.0); %Monocytes 8.2 % (0.0-10.0); %Neutrophils 81.2 % (42.0-75.0); Hemoglobin 7.2 g/dL (12.0-16.0); Mean Corpuscular Hemoglobin 30.5 pg (27.0-31.0); Mean Corpuscular Volume 95.2 fL (78.0-98.0); Mean Platelet Volume 8.4 fL (7.4-10.4); Platelet Count 145 thou/uL (130-400); RBC Distribution Width 14.4 % (11.5-14.5); Red Blood Cell (RBC) Count 2.36 mill/uL (4.20-5.40); White Blood Cell (WBC) Count 8.3 thou/uL (4.8-10.8)
[2021-12-11] MEDS: Ferrous Sulfate 325 MG TAB PO SCH (18:53)
[2021-12-11] MEDS: Ascorbic Acid 500 mg Chewable Tablet PO SCH (21:36)
[2021-12-12] MEDS: Acetaminophen/Codeine 30-300mg Tablet PO SCH ×4 (02:07→20:55)
[2021-12-12 06:15] LABS: #Lymphocytes 1.7 thou/uL (1.20-3.40); #Monocytes 0.8 thou/uL (0.11-0.59); #Neutrophils 5.4 thou/uL (1.40-6.50); %Basophils 0.2 % (0.0-1.0); %Eosinophils 0.2 % (0.0-10.0); %Lymphocytes 21.2 % (21.0-51.0); %Monocytes 9.9 % (0.0-10.0); %Neutrophils 68.5 % (42.0-75.0); Hemoglobin 6.5 g/dL (12.0-16.0); Mean Corpuscular HGB CONC 31.6 g/dL (32.0-36.0); Mean Corpuscular Hemoglobin 29.9 pg (27.0-31.0); Mean Corpuscular Volume 94.6 fL (78.0-98.0); Mean Platelet Volume 7.7 fL (7.4-10.4); Platelet Count 131 thou/uL (130-400); RBC Distribution Width 14.4 % (11.5-14.5); Red Blood Cell (RBC) Count 2.17 mill/uL (4.20-5.40); White Blood Cell (WBC) Count 7.9 thou/uL (4.8-10.8)
[2021-12-12 06:56] LABS: Calcium 8.5 mg/dL (7.8-10.44); Glucose 174 mg/dL (83-110)
[2021-12-12 06:58] LABS: Carbon Dioxide 26 mmol/L (23-31)
[2021-12-12 07:00] LABS: BUN (Urea Nitrogen) 49 mg/dL (9.8-20.1); Calc. Creatinine Clearance 28 mL/min (70-130); Phosphorus 3.9 mg/dL (2.3-4.7)
[2021-12-12 07:02] LABS: Magnesium 2.4 mg/dL (1.6-2.6)
[2021-12-12 07:12] LABS: Anion Gap 12 mmol/L (10-20)
[2021-12-12 07:26] LABS: Chloride 103 mmol/L (98-107); Potassium 3.8 mmol/L (3.5-5.1); Sodium 136 mmol/L (136-145)
[2021-12-12] MEDS: hydrALAZINE 25 MG TAB PO SCH ×2 (09:04→20:48)
[2021-12-12] MEDS: Polyethylene Glycol 3350 17 GM Packet PO SCH (09:05)
[2021-12-12] MEDS: Senokot S 8.6-50 MG TAB PO SCH ×2 (09:05→21:31)
[2021-12-12] MEDS: Ascorbic Acid 500 mg Chewable Tablet PO SCH ×2 (09:05→20:48)
[2021-12-12] MEDS: Famotidine 20 MG TAB PO SCH (09:05)
[2021-12-12] MEDS: Carvedilol 25 MG TAB PO SCH ×2 (09:05→20:48)
[2021-12-12] MEDS: Ferrous Sulfate 325 MG TAB PO SCH ×2 (09:05→16:38)
[2021-12-12] MEDS: Multivitamin W/ Minerals 1 TAB PO SCH (09:05)
[2021-12-12] MEDS: Cyclobenzaprine 10 MG TAB PO PRN (20:48)
[2021-12-12 21:41] VITALS: TEMP 98.5
[2021-12-13] MEDS: Acetaminophen/Codeine 30-300mg Tablet PO SCH ×3 (02:04→16:15)
[2021-12-13] MEDS ORDERED: Famotidine 20 MG TAB PO SCH (09:00)
[2021-12-13] MEDS: Ferrous Sulfate 325 MG TAB PO SCH ×2 (09:16→18:37)
[2021-12-13] MEDS: hydrALAZINE 25 MG TAB PO SCH ×2 (11:09→20:46)
[2021-12-13] MEDS: Carvedilol 25 MG TAB PO SCH ×2 (11:09→20:48)
[2021-12-13] MEDS: Polyethylene Glycol 3350 17 GM Packet PO SCH (11:09)
[2021-12-13] MEDS: Furosemide 20 MG TAB PO SCH (11:10)
[2021-12-13] MEDS: Multivitamin W/ Minerals 1 TAB PO SCH (11:10)
[2021-12-13] MEDS: Ascorbic Acid 500 mg Chewable Tablet PO SCH ×2 (11:10→20:45)
[2021-12-13] MEDS: Senokot S 8.6-50 MG TAB PO SCH ×2 (11:10→20:48)
[2021-12-13 12:56] LABS: #Eosinphils 0.1 thou/uL (0.0-0.7); #Lymphocytes 1.9 thou/uL (1.20-3.40); #Monocytes 0.6 thou/uL (0.11-0.59); #Neutrophils 5.1 thou/uL (1.40-6.50); %Lymphocytes 24.6 % (21.0-51.0); %Monocytes 7.7 % (0.0-10.0); %Neutrophils 66.7 % (42.0-75.0); Hemoglobin 8.7 g/dL (12.0-16.0); Mean Corpuscular HGB CONC 32.2 g/dL (32.0-36.0); Mean Corpuscular Hemoglobin 30.9 pg (27.0-31.0); Mean Corpuscular Volume 96.1 fL (78.0-98.0); Mean Platelet Volume 8.6 fL (7.4-10.4); Platelet Count 162 thou/uL (130-400); RBC Distribution Width 14.6 % (11.5-14.5); Red Blood Cell (RBC) Count 2.82 mill/uL (4.20-5.40); White Blood Cell (WBC) Count 7.7 thou/uL (4.8-10.8)
[2021-12-13 13:36] LABS: Anion Gap 17 mmol/L (10-20); BUN (Urea Nitrogen) 39 mg/dL (9.8-20.1); Calc. Creatinine Clearance 38 mL/min (70-130); Carbon Dioxide 18 mmol/L (23-31); Chloride 106 mmol/L (98-107); Glucose 275 mg/dL (83-110); Magnesium 2.3 mg/dL (1.6-2.6); Phosphorus 3.1 mg/dL (2.3-4.7); Potassium 3.8 mmol/L (3.5-5.1); Sodium 137 mmol/L (136-145)
[2021-12-13] MEDS ORDERED: Acetaminophen/Codeine 30-300mg Tablet PO PRN (16:35)
[2021-12-13] MEDS ORDERED: Acetaminophen 500 MG TAB PO SCH (18:00)
[2021-12-13] MEDS: Cyclobenzaprine 10 MG TAB PO PRN (20:45)
[2021-12-13 20:53] VITALS: BP 164/76
[2021-12-17] MEDS ORDERED: cloNIDine 0.1mg/24 Hour PATCH TD SCH (09:00)
== END 2021-12-13 22:05 | DRG 522 ==
LOC: ERS 15:36 → SURG A 17:57
PROVIDERS: ADMIT Specialist; ATTEND Surgery
PROC: 0SRR0JZ Replacement of Right Hip Joint, Femoral Surface with Synthetic Substitute, Open Approach (ICD-10-PCS; principal; 2021-12-10)
PROC: 30233N1 Transfusion of Nonautologous Red Blood Cells into Peripheral Vein, Percutaneous Approach (ICD-10-PCS; 2021-12-12)
DX: S72.001A Fracture of unspecified part of neck of right femur, initial encounter for closed fracture (principal); N17.9 Acute kidney failure, unspecified; I48.20 Chronic atrial fibrillation, unspecified; Z20.822 Contact with and (suspected) exposure to COVID-19; F03.90 Unspecified dementia, unspecified severity, without behavioral disturbance, psychotic disturbance, mood disturbance, and anxiety; E11.22 Type 2 diabetes mellitus with diabetic chronic kidney disease; I12.9 Hypertensive chronic kidney disease with stage 1 through stage 4 chronic kidney disease, or unspecified chronic kidney disease; N18.30 Chronic kidney disease, stage 3 unspecified; D63.1 Anemia in chronic kidney disease; E78.5 Hyperlipidemia, unspecified; W18.30XA Fall on same level, unspecified, initial encounter; Y92.129 Unspecified place in nursing home as the place of occurrence of the external cause; Z98.49 Cataract extraction status, unspecified eye; Z88.0 Allergy status to penicillin; Z79.899 Other long term (current) drug therapy; Z79.01 Long term (current) use of anticoagulants; Z79.82 Long term (current) use of aspirin; Z79.4 Long term (current) use of insulin
CPT/HCPCS: 36415; 36430; 70450; 71045; 72170; 80048; 80053; 81001; 83735; 83880; 84100; 84484; 85025; 86850; 86900; 86901; 93005; 93306; 94760; 96374; C1713; C1776; G0390; J0360; J1160; J1940; J1956; J2060; J2270; J2370; J2704; J3475; J3490; J7050; P9016; S0028; U0002

== ENCOUNTER 2022-02-05 18:08 | Observation (INO) | payer MEDICARE, BC ==
[2022-02-05] MEDS ORDERED: Dextrose 50% Abboject 50 ML SYRINGE ONE (18:39)
[2022-02-05 19:06] LABS: #Eosinphils 0.3 thou/uL (0.0-0.7); #Lymphocytes 1.7 thou/uL (1.20-3.40); #Monocytes 0.3 thou/uL (0.11-0.59); #Neutrophils 3.4 thou/uL (1.40-6.50); %Eosinophils 4.8 % (0.0-10.0); %Lymphocytes 30.2 % (21.0-51.0); %Monocytes 5.9 % (0.0-10.0); Hemoglobin 10.5 g/dL (12.0-16.0); Mean Corpuscular HGB CONC 31.3 g/dL (32.0-36.0); Mean Corpuscular Hemoglobin 32.5 pg (27.0-31.0); Mean Platelet Volume 8.2 fL (7.4-10.4); Platelet Count 199 thou/uL (130-400); RBC Distribution Width 16.6 % (11.5-14.5); Red Blood Cell (RBC) Count 3.22 mill/uL (4.20-5.40); White Blood Cell (WBC) Count 5.7 thou/uL (4.8-10.8)
[2022-02-05 19:29] LABS: Bilirubin Negative (Negative); Blood, Urine Negative (Negative); Clarity Clear (Clear); Glucose, Urine (Dipstick) Normal (Negative); Ketone, Urine Negative (Negative); Leukocyte Negative Leu/uL (Negative); Nitrite Negative (Negative); Protein, Urine (Dipstick) Negative (Neg-Trace); Specific Gravity, Urine 1.009 (1.002-1.036); Urobilinogen Normal mg/dL (Less than 2)
[2022-02-05 19:29] LABS: ALT (SGPT) 12 U/L (8-55); AST (SGOT) 23 U/L (5-34); Alkaline Phosphatase 60 U/L (40-110); Anion Gap 14 mmol/L (10-20); BUN (Urea Nitrogen) 25 mg/dL (9.8-20.1); Bilirubin, Total 0.6 mg/dL (0.2-1.2); Calc. Creatinine Clearance 0 mL/min (70-130); Calcium 8.8 mg/dL (7.8-10.44); Carbon Dioxide 22 mmol/L (23-31); Chloride 102 mmol/L (98-107); Estimated GFR 33; Globulin 2.9 g/dL (2.4-3.5); Glucose 353 mg/dL (83-110); Potassium 4.7 mmol/L (3.5-5.1); Protein, Total 5.9 g/dL (5.8-8.1); Sodium 133 mmol/L (136-145)
[2022-02-06] MEDS ORDERED: Dextrose 5% in Water 1,000 ML IV SCH (00:45)
[2022-02-06 01:10] VITALS: BMI 25.4
[2022-02-06] MEDS ORDERED: Ondansetron PF 4 MG/2 ML Vial IVP PRN (02:54)
[2022-02-06] MEDS ORDERED: Dextrose 50% Abboject 50 ML SYRINGE SLOW IVP PRN (03:00)
[2022-02-06] MEDS ORDERED: Dextrose 5% in Water 1,000 ML IV PRN (03:00)
[2022-02-06 04:57] LABS: #Eosinphils 0.2 thou/uL (0.0-0.7); #Lymphocytes 1.9 thou/uL (1.20-3.40); #Monocytes 0.4 thou/uL (0.11-0.59); #Neutrophils 2.2 thou/uL (1.40-6.50); %Basophils 0.7 % (0.0-1.0); %Monocytes 7.9 % (0.0-10.0); %Neutrophils 46.4 % (42.0-75.0); Hemoglobin 10.1 g/dL (12.0-16.0); Mean Corpuscular HGB CONC 31.5 g/dL (32.0-36.0); Mean Corpuscular Hemoglobin 32.4 pg (27.0-31.0); Mean Platelet Volume 8.1 fL (7.4-10.4); Platelet Count 199 thou/uL (130-400); RBC Distribution Width 16.5 % (11.5-14.5); Red Blood Cell (RBC) Count 3.12 mill/uL (4.20-5.40); White Blood Cell (WBC) Count 4.7 thou/uL (4.8-10.8)
[2022-02-06 05:07] LABS: Anion Gap 12 mmol/L (10-20); BUN (Urea Nitrogen) 24 mg/dL (9.8-20.1); CK (CPK) 100 U/L (29-168); Calc. Creatinine Clearance 38 mL/min (70-130); Calcium 8.7 mg/dL (7.8-10.44); Carbon Dioxide 24 mmol/L (23-31); Chloride 106 mmol/L (98-107); Estimated GFR 46; Glucose 95 mg/dL (83-110); Potassium 4.2 mmol/L (3.5-5.1); Sodium 138 mmol/L (136-145)
[2022-02-06 06:54] LABS: Hemoglobin A1c 5.2 % (4.0-6.0)
[2022-02-06] MEDS ORDERED: Apixaban 5 MG TAB PO SCH (09:00)
[2022-02-06] MEDS ORDERED: hydrALAZINE 25 MG TAB PO SCH (09:00)
[2022-02-06] MEDS ORDERED: Aspirin 81 mg Enteric Coated Tablet PO SCH (09:00)
[2022-02-06] MEDS ORDERED: Carvedilol 25 MG TAB PO SCH (09:00)
[2022-02-06 15:58] VITALS: BP 121/57; TEMP 97.5
[2022-02-06] MEDS ORDERED: Simvastatin 5 MG TAB PO SCH (21:00)
== END 2022-02-06 16:55 | disposition home or self-care (01) ==
LOC: ERS 18:08 → 2SW 23:23
PROVIDERS: ADMIT Internal Medicine; ATTEND Internal Medicine
DX: E11.649 Type 2 diabetes mellitus with hypoglycemia without coma (principal); G93.41 Metabolic encephalopathy; N17.9 Acute kidney failure, unspecified; I10 Essential (primary) hypertension; I48.20 Chronic atrial fibrillation, unspecified; F03.90 Unspecified dementia, unspecified severity, without behavioral disturbance, psychotic disturbance, mood disturbance, and anxiety; Z79.01 Long term (current) use of anticoagulants; Z79.4 Long term (current) use of insulin; Z79.82 Long term (current) use of aspirin; Z79.899 Other long term (current) drug therapy; Z88.0 Allergy status to penicillin; Z20.822 Contact with and (suspected) exposure to COVID-19; Z86.73 Personal history of transient ischemic attack (TIA), and cerebral infarction without residual deficits; W19.XXXA Unspecified fall, initial encounter; Y92.129 Unspecified place in nursing home as the place of occurrence of the external cause
CPT/HCPCS: 70450; 71045; 80048; 80053; 81003; 82550; 82962 ×2; 83036; 84484; 85025 ×2; 93005; 96361; 96374; 99285; G0378 ×2; U0003; U0005; 36415; 36416; J7070; J7999

== ENCOUNTER 2022-08-22 10:02 | Inpatient (IN) | payer MEDICARE, BC ==
[2022-08-22 12:14] LABS: #Eosinphils 0.1 thou/uL (0.0-0.7); #Lymphocytes 1.5 thou/uL (1.20-3.40); #Monocytes 0.3 thou/uL (0.11-0.59); #Neutrophils 5.1 thou/uL (1.40-6.50); %Basophils 0.2 % (0.0-1.0); %Lymphocytes 20.9 % (21.0-51.0); %Monocytes 4.4 % (0.0-10.0); %Neutrophils 72.5 % (42.0-75.0); Hemoglobin 12.7 g/dL (12.0-16.0); Mean Corpuscular HGB CONC 33.2 g/dL (32.0-36.0); Mean Corpuscular Hemoglobin 32.5 pg (27.0-31.0); Mean Corpuscular Volume 97.9 fl (78.0-98.0); Mean Platelet Volume 8.8 fL (7.4-10.4); Platelet Count 175 10x3/uL (130-400); RBC Distribution Width 12.6 % (11.5-14.5)
[2022-08-22 12:47] LABS: INR-International Normal Ratio 1.2; PTT 28.1 sec (22.9-36.1); Prothrombin Time 15.6 sec (12.0-14.7)
[2022-08-22 12:52] LABS: ALT (SGPT) 22 U/L (8-55); AST (SGOT) 24 U/L (5-34); Albumin 3.7 g/dL (3.4-4.8); Alkaline Phosphatase 83 U/L (40-110); Anion Gap 13 mmol/L (10-20); BUN (Urea Nitrogen) 26 mg/dL (9.8-20.1); Bilirubin, Total 0.8 mg/dL (0.2-1.2); Calc. Creatinine Clearance 0 mL/min (70-130); Carbon Dioxide 24 mmol/L (23-31); Chloride 104 mmol/L (98-107); Estimated GFR 33; Globulin 3.8 g/dL (2.4-3.5); Glucose 173 mg/dL (83-110); Protein, Total 7.5 g/dL (5.8-8.1); Sodium 137 mmol/L (136-145)
[2022-08-22] MEDS ORDERED: Dextrose 50% Abboject 50 ML SYRINGE SLOW IVP PRN ×2 (14:12→14:50)
[2022-08-22] MEDS ORDERED: Morphine 2 MG/ML VIAL SLOW IVP PRN (14:12)
[2022-08-22] MEDS ORDERED: TETANUS, DIPHTHERIA TOX,ADULT (TDVAX) 0.5 ML VIAL IM ONE (14:12)
[2022-08-22] MEDS ORDERED: Dextrose 5% in Water 1,000 ML IV PRN ×2 (14:12→14:50)
[2022-08-22] MEDS ORDERED: Ondansetron ODT 4 MG TAB PO PRN (14:13)
[2022-08-22] MEDS ORDERED: Ondansetron PF 4 MG/2 ML Vial IVP PRN (14:13)
[2022-08-22 15:31] VITALS: BMI 23.1
[2022-08-22 17:09] LABS: Bilirubin Negative (Negative); Blood, Urine Negative (Negative); Clarity Clear (Clear); Glucose, Urine (Dipstick) Normal (Negative); Ketone, Urine 10 mg/dL (Negative); Leukocyte Negative Leu/uL (Negative); Nitrite Negative (Negative); Protein, Urine (Dipstick) 10 mg/dL (Neg-Trace); Specific Gravity, Urine 1.016 (1.002-1.036); Urobilinogen Normal mg/dL (Less than 2)
[2022-08-22] MEDS ORDERED: Clindamycin/D5W 900 MG in Premix Bag 1 BAG IVPB SCH (18:45)
[2022-08-22] MEDS: Carvedilol 25 MG TAB PO SCH ×2 (21:40→21:41)
[2022-08-22] MEDS: Famotidine 20 MG TAB PO SCH (21:41)
[2022-08-22] MEDS: Senokot S 8.6-50 MG TAB PO SCH (21:42)
[2022-08-22] MEDS: Simvastatin 10 MG TAB PO SCH (21:42)
[2022-08-22] MEDS ORDERED: Sodium Chloride 0.9% 1,000 ML IV SCH (23:59)
[2022-08-23] MEDS ORDERED: Haloperidol Lactate 5 MG/ML VIAL IM SCH (06:30)
[2022-08-23] MEDS ORDERED: Acetaminophen/Codeine 30-300mg Tablet PO PRN (07:51)
[2022-08-23] MEDS ORDERED: Cyclobenzaprine 10 MG TAB PO PRN (07:51)
[2022-08-23 09:06] LABS: #Monocytes 0.6 thou/uL (0.11-0.59); #Neutrophils 4.9 thou/uL (1.40-6.50); %Basophils 0.3 % (0.0-1.0); %Eosinophils 0.6 % (0.0-10.0); %Lymphocytes 15.8 % (21.0-51.0); %Monocytes 8.4 % (0.0-10.0); %Neutrophils 74.9 % (42.0-75.0); Hemoglobin 11.1 g/dL (12.0-16.0); Mean Corpuscular HGB CONC 34.3 g/dL (32.0-36.0); Mean Corpuscular Hemoglobin 33.6 pg (27.0-31.0); Mean Corpuscular Volume 98.1 fl (78.0-98.0); Mean Platelet Volume 8.9 fL (7.4-10.4); Platelet Count 158 10x3/uL (130-400); RBC Distribution Width 12.4 % (11.5-14.5); Red Blood Cell (RBC) Count 3.29 mill/uL (4.20-5.40); White Blood Cell (WBC) Count 6.6 10x3/uL (4.8-10.8)
[2022-08-23] MEDS: Sertraline 25 MG TAB PO SCH (09:16)
[2022-08-23] MEDS: Ferrous Sulfate 325 MG TAB PO SCH (09:16)
[2022-08-23] MEDS: Carvedilol 25 MG TAB PO SCH (09:17)
[2022-08-23] MEDS: Famotidine 20 MG TAB PO SCH (09:17)
[2022-08-23] MEDS: hydrALAZINE 25 MG TAB PO SCH ×2 (09:17→20:57)
[2022-08-23] MEDS: Acetaminophen 325 MG TAB PO SCH ×3 (09:17→20:16)
[2022-08-23] MEDS: Senokot S 8.6-50 MG TAB PO SCH ×2 (09:20→20:17)
[2022-08-23] MEDS: Polyethylene Glycol 3350 17 GM Packet PO SCH (09:20)
[2022-08-23 09:30] LABS: Anion Gap 16 mmol/L (10-20); BUN (Urea Nitrogen) 23 mg/dL (9.8-20.1); Calc. Creatinine Clearance 32 mL/min (70-130); Calcium 9.5 mg/dL (7.8-10.44); Carbon Dioxide 20 mmol/L (23-31); Chloride 104 mmol/L (98-107); Estimated GFR 43; Glucose 192 mg/dL (83-110); Magnesium 1.9 mg/dL (1.6-2.6); Phosphorus 3.1 mg/dL (2.3-4.7); Sodium 136 mmol/L (136-145)
[2022-08-23] MEDS: HumaLOG 300 UNITS/3 ML VIAL SC PRN (12:37)
[2022-08-23] MEDS ORDERED: Clindamycin/D5W 900 MG in Premix Bag 1 BAG IVPB SCH (14:30)
[2022-08-23] MEDS: Donepezil HCl 10 MG TAB PO SCH (20:14)
[2022-08-23] MEDS: Simvastatin 10 MG TAB PO SCH (20:15)
[2022-08-23] MEDS ORDERED: Sodium Chloride 0.9% 1,000 ML IV SCH (23:59)
[2022-08-24] MEDS: Acetaminophen 325 MG TAB PO SCH ×4 (02:17→20:00)
[2022-08-24] MEDS ORDERED: Haloperidol Lactate 5 MG/ML VIAL IM SCH (06:00)
[2022-08-24] MEDS: Carvedilol 25 MG TAB PO SCH ×2 (07:06→22:34)
[2022-08-24] MEDS ORDERED: Dexmedetomidine 200 MCG/2 ML VIAL ONE (07:30)
[2022-08-24] MEDS ORDERED: fentaNYL PF 100 MCG/2 ML SYRINGE ONE (07:30)
[2022-08-24] MEDS ORDERED: Levofloxacin 500 mg/D5W 100 ml Premix Bag ONE (07:43)
[2022-08-24] MEDS ORDERED: Clindamycin/D5W 900 mg/50 ml Premix Bag ONE (07:43)
[2022-08-24] MEDS: hydrALAZINE 25 MG TAB PO SCH ×2 (08:11→22:35)
[2022-08-24] MEDS: Sertraline 25 MG TAB PO SCH (08:11)
[2022-08-24] MEDS: Ferrous Sulfate 325 MG TAB PO SCH (08:11)
[2022-08-24] MEDS: Polyethylene Glycol 3350 17 GM Packet PO SCH (08:11)
[2022-08-24] MEDS: Senokot S 8.6-50 MG TAB PO SCH ×2 (08:11→22:35)
[2022-08-24] MEDS: Famotidine 20 MG TAB PO SCH (08:11)
[2022-08-24] MEDS ORDERED: Glycopyrrolate 0.2 MG/ML 5 ML SYRINGE ONE (08:15)
[2022-08-24] MEDS ORDERED: Rocuronium Bromide 10 MG/ML (10ML VIAL) ONE (08:15)
[2022-08-24] MEDS ORDERED: NEOSTIGMINE 3 MG/3 ML SYR 3 MG/3 ML SYRINGE ONE (08:15)
[2022-08-24] MEDS ORDERED: ePHEDrine 50 MG/ML VIAL ONE (08:15)
[2022-08-24] MEDS ORDERED: PROPOFOL 200 MG/20 ML VIAL ONE (08:15)
[2022-08-24] MEDS ORDERED: Dexamethasone 20 MG/5 ML VIAL ONE (08:15)
[2022-08-24] MEDS ORDERED: Ondansetron PF 4 MG/2 ML Vial ONE (08:15)
[2022-08-24] MEDS ORDERED: PHENYLEPHRINE-NS 100 MCG/ML 10 ML SYRINGE ONE (08:15)
[2022-08-24] MEDS ORDERED: Promethazine HCl 25 MG/ML VIAL IM PRN (09:48)
[2022-08-24] MEDS ORDERED: Ondansetron HCl/PF 4 MG/2 ML Vial IVP PRN (09:48)
[2022-08-24 12:53] LABS: #Eosinphils 0.1 thou/uL (0.0-0.7); #Monocytes 0.2 thou/uL (0.11-0.59); #Neutrophils 7.4 thou/uL (1.40-6.50); %Basophils 0.2 % (0.0-1.0); %Eosinophils 0.7 % (0.0-10.0); %Lymphocytes 11.7 % (21.0-51.0); %Monocytes 2.1 % (0.0-10.0); %Neutrophils 85.2 % (42.0-75.0); Hemoglobin 10.9 g/dL (12.0-16.0); Mean Corpuscular HGB CONC 33.3 g/dL (32.0-36.0); Mean Corpuscular Hemoglobin 34.7 pg (27.0-31.0); Mean Platelet Volume 8.7 fL (7.4-10.4); Platelet Count 135 10x3/uL (130-400); RBC Distribution Width 12.5 % (11.5-14.5); Red Blood Cell (RBC) Count 3.13 mill/uL (4.20-5.40); White Blood Cell (WBC) Count 8.7 10x3/uL (4.8-10.8)
[2022-08-24 13:51] LABS: Anion Gap 19 mmol/L (10-20); BUN (Urea Nitrogen) 24 mg/dL (9.8-20.1); Calc. Creatinine Clearance 33 mL/min (70-130); Calcium 9.1 mg/dL (7.8-10.44); Carbon Dioxide 15 mmol/L (23-31); Chloride 104 mmol/L (98-107); Estimated GFR 44; Glucose 241 mg/dL (83-110); Magnesium 1.7 mg/dL (1.6-2.6); Phosphorus 3.6 mg/dL (2.3-4.7); Potassium 4.6 mmol/L (3.5-5.1); Sodium 133 mmol/L (136-145)
[2022-08-24] MEDS: Clindamycin/D5W 600 MG in Premix Bag 1 BAG IVPB SCH ×2 (14:00→22:33)
[2022-08-24] MEDS ORDERED: Magnesium 2 GM/50 ML(in water) 2 GM in Premix Bag 1 BAG IVPB SCH (15:15)
[2022-08-24] MEDS: HumaLOG 300 UNITS/3 ML VIAL SC PRN (16:26)
[2022-08-24] MEDS: Donepezil HCl 10 MG TAB PO SCH (22:34)
[2022-08-24] MEDS: QUEtiapine 25 MG TAB PO SCH (22:34)
[2022-08-24] MEDS: Simvastatin 10 MG TAB PO SCH (22:34)
[2022-08-25] MEDS: Acetaminophen 325 MG TAB PO SCH ×4 (03:00→20:59)
[2022-08-25] MEDS: Clindamycin/D5W 600 MG in Premix Bag 1 BAG IVPB SCH (03:08)
[2022-08-25 06:22] LABS: #Lymphocytes 0.9 thou/uL (1.20-3.40); #Monocytes 0.9 thou/uL (0.11-0.59); #Neutrophils 8.1 thou/uL (1.40-6.50); %Basophils 0.1 % (0.0-1.0); %Eosinophils 0.1 % (0.0-10.0); %Lymphocytes 8.9 % (21.0-51.0); %Monocytes 9.4 % (0.0-10.0); %Neutrophils 81.5 % (42.0-75.0); Hemoglobin 9.6 g/dL (12.0-16.0); Mean Corpuscular HGB CONC 33.6 g/dL (32.0-36.0); Mean Corpuscular Hemoglobin 32.7 pg (27.0-31.0); Mean Corpuscular Volume 97.5 fl (78.0-98.0); Mean Platelet Volume 8.7 fL (7.4-10.4); Platelet Count 135 10x3/uL (130-400); RBC Distribution Width 12.4 % (11.5-14.5); Red Blood Cell (RBC) Count 2.92 mill/uL (4.20-5.40); White Blood Cell (WBC) Count 9.9 10x3/uL (4.8-10.8)
[2022-08-25] MEDS: HumaLOG 300 UNITS/3 ML VIAL SC PRN (06:22)
[2022-08-25 06:31] LABS: Anion Gap 12 mmol/L (10-20); BUN (Urea Nitrogen) 33 mg/dL (9.8-20.1); Calc. Creatinine Clearance 29 mL/min (70-130); Calcium 8.8 mg/dL (7.8-10.44); Carbon Dioxide 20 mmol/L (23-31); Chloride 107 mmol/L (98-107); Estimated GFR 37; Glucose 206 mg/dL (83-110); Magnesium 2.4 mg/dL (1.6-2.6); Phosphorus 4.1 mg/dL (2.3-4.7); Potassium 4.2 mmol/L (3.5-5.1); Sodium 135 mmol/L (136-145)
[2022-08-25] MEDS: hydrALAZINE 25 MG TAB PO SCH ×2 (09:57→21:00)
[2022-08-25] MEDS: Ferrous Sulfate 325 MG TAB PO SCH (09:58)
[2022-08-25] MEDS: Carvedilol 25 MG TAB PO SCH ×2 (09:59→21:00)
[2022-08-25] MEDS: Polyethylene Glycol 3350 17 GM Packet PO SCH (09:59)
[2022-08-25] MEDS: Aspirin 81 mg Enteric Coated Tablet PO SCH (09:59)
[2022-08-25] MEDS: Senokot S 8.6-50 MG TAB PO SCH ×2 (10:05→20:59)
[2022-08-25] MEDS: Sertraline 25 MG TAB PO SCH (10:05)
[2022-08-25] MEDS: Ascorbic Acid 500 mg Chewable Tablet PO SCH ×2 (10:05→20:59)
[2022-08-25] MEDS: Famotidine 20 MG TAB PO SCH (10:05)
[2022-08-25] MEDS: Simvastatin 10 MG TAB PO SCH (20:59)
[2022-08-25] MEDS: Donepezil HCl 10 MG TAB PO SCH (21:00)
[2022-08-25] MEDS: QUEtiapine 25 MG TAB PO SCH (21:00)
[2022-08-25] MEDS: Insulin Regular 300 UNITS/3 ML VIAL SC PRN (21:19)
[2022-08-26] MEDS: Acetaminophen 325 MG TAB PO SCH ×4 (03:40→21:00)
[2022-08-26 05:57] LABS: #Basophils 0.1 thou/uL (0.0-0.2); #Eosinphils 0.1 thou/uL (0.0-0.7); #Lymphocytes 1.7 thou/uL (1.20-3.40); #Monocytes 0.6 thou/uL (0.11-0.59); #Neutrophils 5.9 thou/uL (1.40-6.50); %Basophils 1.7 % (0.0-1.0); %Eosinophils 0.6 % (0.0-10.0); %Lymphocytes 20.2 % (21.0-51.0); %Monocytes 7.7 % (0.0-10.0); %Neutrophils 69.9 % (42.0-75.0); Hemoglobin 8.9 g/dL (12.0-16.0); Mean Corpuscular HGB CONC 33.3 g/dL (32.0-36.0); Mean Corpuscular Hemoglobin 32.6 pg (27.0-31.0); Mean Corpuscular Volume 98.1 fl (78.0-98.0); Mean Platelet Volume 8.9 fL (7.4-10.4); Platelet Count 142 10x3/uL (130-400); RBC Distribution Width 12.6 % (11.5-14.5); Red Blood Cell (RBC) Count 2.74 mill/uL (4.20-5.40); White Blood Cell (WBC) Count 8.4 10x3/uL (4.8-10.8)
[2022-08-26 06:36] LABS: Anion Gap 11 mmol/L (10-20); BUN (Urea Nitrogen) 37 mg/dL (9.8-20.1); Calc. Creatinine Clearance 36 mL/min (70-130); Calcium 8.7 mg/dL (7.8-10.44); Carbon Dioxide 21 mmol/L (23-31); Chloride 110 mmol/L (98-107); Estimated GFR 48; Glucose 151 mg/dL (83-110); Magnesium 2.2 mg/dL (1.6-2.6); Phosphorus 2.2 mg/dL (2.3-4.7); Potassium 3.7 mmol/L (3.5-5.1); Sodium 138 mmol/L (136-145)
[2022-08-26] MEDS ORDERED: Sodium Phosphate 30 MMOL in Sodium Chloride 0.9% 250 ML 250 ML IVPB SCH (09:00)
[2022-08-26] MEDS: hydrALAZINE 25 MG TAB PO SCH ×2 (09:48→21:00)
[2022-08-26] MEDS: Senokot S 8.6-50 MG TAB PO SCH ×2 (09:49→21:00)
[2022-08-26] MEDS: Ferrous Sulfate 325 MG TAB PO SCH (09:49)
[2022-08-26] MEDS: Carvedilol 25 MG TAB PO SCH ×2 (09:49→21:00)
[2022-08-26] MEDS: Famotidine 20 MG TAB PO SCH (09:49)
[2022-08-26] MEDS: Apixaban 5 MG TAB PO SCH ×2 (09:50→20:59)
[2022-08-26] MEDS: Furosemide 20 MG TAB PO SCH (09:50)
[2022-08-26] MEDS: Aspirin 81 mg Enteric Coated Tablet PO SCH (09:50)
[2022-08-26] MEDS: Sertraline 25 MG TAB PO SCH (09:50)
[2022-08-26] MEDS: Potassium Chloride 20 MEQ TAB PO SCH (09:50)
[2022-08-26] MEDS: Ascorbic Acid 500 mg Chewable Tablet PO SCH ×2 (09:50→20:59)
[2022-08-26] MEDS: Polyethylene Glycol 3350 17 GM Packet PO SCH (11:49)
[2022-08-26] MEDS: Insulin Regular 300 UNITS/3 ML VIAL SC PRN ×2 (11:50→21:16)
[2022-08-26] MEDS: QUEtiapine 25 MG TAB PO SCH (21:00)
[2022-08-26] MEDS: Simvastatin 10 MG TAB PO SCH (21:00)
[2022-08-26] MEDS: Donepezil HCl 10 MG TAB PO SCH (21:00)
[2022-08-27] MEDS: Acetaminophen 325 MG TAB PO SCH ×4 (01:43→20:46)
[2022-08-27 05:25] LABS: #Eosinphils 0.4 thou/uL (0.0-0.7); #Lymphocytes 1.6 thou/uL (1.20-3.40); #Monocytes 0.6 thou/uL (0.11-0.59); #Neutrophils 4.3 thou/uL (1.40-6.50); %Basophils 0.6 % (0.0-1.0); %Eosinophils 5.7 % (0.0-10.0); %Lymphocytes 23.7 % (21.0-51.0); %Monocytes 7.9 % (0.0-10.0); %Neutrophils 62.1 % (42.0-75.0); Hemoglobin 9.2 g/dL (12.0-16.0); Mean Corpuscular HGB CONC 33.1 g/dL (32.0-36.0); Mean Corpuscular Hemoglobin 32.8 pg (27.0-31.0); Mean Corpuscular Volume 98.9 fl (78.0-98.0); Mean Platelet Volume 10.1 fL (7.4-10.4); Platelet Count 145 10x3/uL (130-400); RBC Distribution Width 12.7 % (11.5-14.5); Red Blood Cell (RBC) Count 2.79 mill/uL (4.20-5.40); White Blood Cell (WBC) Count 6.9 10x3/uL (4.8-10.8)
[2022-08-27 05:37] LABS: Anion Gap 12 mmol/L (10-20); BUN (Urea Nitrogen) 39 mg/dL (9.8-20.1); Calc. Creatinine Clearance 40 mL/min (70-130); Calcium 8.7 mg/dL (7.8-10.44); Carbon Dioxide 20 mmol/L (23-31); Chloride 111 mmol/L (98-107); Estimated GFR 54; Glucose 133 mg/dL (83-110); Phosphorus 2.9 mg/dL (2.3-4.7); Potassium 4.4 mmol/L (3.5-5.1); Sodium 139 mmol/L (136-145)
[2022-08-27] MEDS: Potassium Chloride 20 MEQ TAB PO SCH (09:13)
[2022-08-27] MEDS: Sertraline 25 MG TAB PO SCH (09:13)
[2022-08-27] MEDS: hydrALAZINE 25 MG TAB PO SCH ×2 (09:14→20:46)
[2022-08-27] MEDS: Furosemide 20 MG TAB PO SCH (09:14)
[2022-08-27] MEDS: Polyethylene Glycol 3350 17 GM Packet PO SCH (09:14)
[2022-08-27] MEDS: Ferrous Sulfate 325 MG TAB PO SCH (09:14)
[2022-08-27] MEDS: Apixaban 5 MG TAB PO SCH ×2 (09:14→20:46)
[2022-08-27] MEDS: Ascorbic Acid 500 mg Chewable Tablet PO SCH ×2 (09:14→20:45)
[2022-08-27] MEDS: Famotidine 20 MG TAB PO SCH (09:14)
[2022-08-27] MEDS: Aspirin 81 mg Enteric Coated Tablet PO SCH (09:14)
[2022-08-27] MEDS: Senokot S 8.6-50 MG TAB PO SCH ×2 (09:14→20:47)
[2022-08-27] MEDS: Carvedilol 25 MG TAB PO SCH ×2 (09:15→20:46)
[2022-08-27] MEDS: Insulin Regular 300 UNITS/3 ML VIAL SC PRN ×2 (13:03→18:18)
[2022-08-27] MEDS: Gabapentin 100 MG CAP PO SCH ×2 (16:00→20:46)
[2022-08-27] MEDS: Simvastatin 10 MG TAB PO SCH (20:45)
[2022-08-27] MEDS: Donepezil HCl 10 MG TAB PO SCH (20:46)
[2022-08-27] MEDS: QUEtiapine 25 MG TAB PO SCH (20:46)
[2022-08-28] MEDS: Acetaminophen 325 MG TAB PO SCH ×2 (02:59→10:06)
[2022-08-28] MEDS: Ferrous Sulfate 325 MG TAB PO SCH (10:02)
[2022-08-28] MEDS: Potassium Chloride 20 MEQ TAB PO SCH (10:03)
[2022-08-28] MEDS: hydrALAZINE 25 MG TAB PO SCH (10:04)
[2022-08-28] MEDS: Apixaban 5 MG TAB PO SCH (10:05)
[2022-08-28] MEDS: Aspirin 81 mg Enteric Coated Tablet PO SCH (10:05)
[2022-08-28] MEDS: Sertraline 25 MG TAB PO SCH (10:05)
[2022-08-28] MEDS: Ascorbic Acid 500 mg Chewable Tablet PO SCH (10:05)
[2022-08-28] MEDS: Carvedilol 25 MG TAB PO SCH (10:06)
[2022-08-28] MEDS: Furosemide 20 MG TAB PO SCH (10:06)
[2022-08-28] MEDS: Senokot S 8.6-50 MG TAB PO SCH (10:18)
[2022-08-28] MEDS: Polyethylene Glycol 3350 17 GM Packet PO SCH (10:18)
[2022-08-28] MEDS: Gabapentin 100 MG CAP PO SCH (10:18)
[2022-08-28 12:22] VITALS: BP 98/55; TEMP 98.1
[2022-08-28] MEDS: Insulin Regular 300 UNITS/3 ML VIAL SC PRN (12:48)
== END 2022-08-28 14:04 | disposition home or self-care (01) | DRG 522 ==
LOC: ERS 10:02 → SURG A 12:53
PROVIDERS: ADMIT Surgery; ATTEND Surgery
PROC: 0SRS0JZ Replacement of Left Hip Joint, Femoral Surface with Synthetic Substitute, Open Approach (ICD-10-PCS; principal; 2022-08-24)
DX: S72.012A Unspecified intracapsular fracture of left femur, initial encounter for closed fracture (principal); N17.9 Acute kidney failure, unspecified; I13.0 Hypertensive heart and chronic kidney disease with heart failure and stage 1 through stage 4 chronic kidney disease, or unspecified chronic kidney disease; I48.20 Chronic atrial fibrillation, unspecified; F03.90 Unspecified dementia, unspecified severity, without behavioral disturbance, psychotic disturbance, mood disturbance, and anxiety; G89.11 Acute pain due to trauma; E78.5 Hyperlipidemia, unspecified; I50.9 Heart failure, unspecified; N18.9 Chronic kidney disease, unspecified; W19.XXXA Unspecified fall, initial encounter; E11.22 Type 2 diabetes mellitus with diabetic chronic kidney disease; E11.649 Type 2 diabetes mellitus with hypoglycemia without coma; Z98.890 Other specified postprocedural states; Z79.82 Long term (current) use of aspirin; Z79.899 Other long term (current) drug therapy; Z79.01 Long term (current) use of anticoagulants; Z88.0 Allergy status to penicillin; Z20.822 Contact with and (suspected) exposure to COVID-19
CPT/HCPCS: 36415; 36416; 71045; 72170; 80048; 80053; 81003; 82550; 83735; 84100; 84484; 85025; 85610; 85730; 86850; 86900; 86901; 93005; C1889; G0390; J1100; J1630; J1815; J1956; J2405; J2704; J3475; J3490; J7050; U0003; U0005

== ENCOUNTER 2023-03-17 14:51 | Inpatient (IN) | payer MEDICARE, BC ==
[2023-03-17 15:52] LABS: #Eosinphils 0.3 thou/uL (0.0-0.7); #Monocytes 0.4 thou/uL (0.11-0.59); #Neutrophils 6.2 thou/uL (1.40-6.50); %Basophils 0.5 % (0.0-1.0); %Eosinophils 3.4 % (0.0-10.0); %Lymphocytes 19.4 % (21.0-51.0); %Monocytes 4.6 % (0.0-10.0); %Neutrophils 70.7 % (42.0-75.0); Hematocrit 37.3 % (36.0-47.0); Hemoglobin 12.5 g/dL (12.0-16.0); Mean Corpuscular HGB CONC 33.5 g/dL (32.0-36.0); Mean Corpuscular Hemoglobin 30.9 pg (27.0-31.0); Mean Corpuscular Volume 92.1 fl (78.0-98.0); Mean Platelet Volume 10.8 fL (7.4-10.4); Platelet Count 180 10x3/uL (130-400); RBC Distribution Width 13.9 % (11.5-14.5); Red Blood Cell (RBC) Count 4.05 mill/uL (4.20-5.40); White Blood Cell (WBC) Count 8.7 10x3/uL (4.8-10.8)
[2023-03-17 16:16] LABS: ALT (SGPT) 25 U/L (8-55); AST (SGOT) 27 U/L (5-34); Albumin 3.8 g/dL (3.4-4.8); Alkaline Phosphatase 90 U/L (40-110); Anion Gap 10 mmol/L (10-20); BUN (Urea Nitrogen) 29 mg/dL (9.8-20.1); Bilirubin, Total 0.6 mg/dL (0.2-1.2); Calc. Creatinine Clearance 0 mL/min (70-130); Calcium 9.5 mg/dL (7.8-10.44); Carbon Dioxide 24 mmol/L (23-31); Chloride 105 mmol/L (98-107); Estimated GFR 36; Globulin 3.5 g/dL (2.4-3.5); Glucose 139 mg/dL (83-110); Potassium 4.7 mmol/L (3.5-5.1); Protein, Total 7.3 g/dL (5.8-8.1); Sodium 134 mmol/L (136-145)
[2023-03-17 16:21] LABS: Troponin I Less than 0.010 ng/mL (< 0.028)
[2023-03-17 16:23] LABS: INR-International Normal Ratio 1.2; Prothrombin Time 15.9 sec (12.0-14.7)
[2023-03-17 16:24] LABS: PTT 33.8 sec (22.9-36.1)
[2023-03-17] MEDS ORDERED: fentaNYL 50 mcg/mL 1 mL Vial ONE (18:44)
[2023-03-17] MEDS ORDERED: Dextrose 50% Abboject 50 ML SYRINGE SLOW IVP PRN (21:27)
[2023-03-17] MEDS ORDERED: Dextrose 5% in Water 1,000 ML IV PRN (21:27)
[2023-03-17] MEDS ORDERED: TETANUS, DIPHTHERIA TOX,ADULT (TDVAX) 0.5 ML VIAL IM ONE (21:27)
[2023-03-17] MEDS ORDERED: Glucagon 1 MG/ML KIT IM PRN (21:27)
[2023-03-17] MEDS ORDERED: Ondansetron ODT 4 MG TAB PO PRN (21:28)
[2023-03-17] MEDS ORDERED: Ondansetron PF 4 MG/2 ML Vial IVP PRN (21:28)
[2023-03-17] MEDS ORDERED: Promethazine HCl 25 MG/ML VIAL IM PRN (21:28)
[2023-03-17] MEDS ORDERED: Metoprolol Tartrate 25 MG TAB PO SCH (21:30)
[2023-03-17] MEDS ORDERED: Cyclobenzaprine 10 MG TAB PO PRN (21:36)
[2023-03-17] MEDS ORDERED: traMADol HCl 50 MG TAB PO SCH ×2 (22:00→23:59)
[2023-03-17 23:12] VITALS: BMI 23.2
[2023-03-17] MEDS: traMADol HCl 50 MG TAB PO PRN (23:35)
[2023-03-18 02:32] LABS: Troponin I 0.025 ng/mL (< 0.028)
[2023-03-18] MEDS: Acetaminophen 325 MG TAB PO SCH ×5 (03:11→23:49)
[2023-03-18 04:46] LABS: #Basophils 0.1 thou/uL (0.0-0.2); #Eosinphils 0.1 thou/uL (0.0-0.7); #Monocytes 0.3 thou/uL (0.11-0.59); #Neutrophils 7.3 thou/uL (1.40-6.50); %Basophils 0.5 % (0.0-1.0); %Eosinophils 1.5 % (0.0-10.0); %Lymphocytes 15.9 % (21.0-51.0); %Monocytes 3.4 % (0.0-10.0); %Neutrophils 78.1 % (42.0-75.0); Mean Corpuscular HGB CONC 33.3 g/dL (32.0-36.0); Mean Platelet Volume 11.2 fL (7.4-10.4); Platelet Count 147 10x3/uL (130-400); RBC Distribution Width 14.1 % (11.5-14.5); Red Blood Cell (RBC) Count 3.55 mill/uL (4.20-5.40); White Blood Cell (WBC) Count 9.4 10x3/uL (4.8-10.8)
[2023-03-18 05:12] LABS: Anion Gap 14 mmol/L (10-20); BUN (Urea Nitrogen) 28 mg/dL (9.8-20.1); Calc. Creatinine Clearance 29 mL/min (70-130); Calcium 8.9 mg/dL (7.8-10.44); Carbon Dioxide 20 mmol/L (23-31); Chloride 103 mmol/L (98-107); Estimated GFR 40; Glucose 241 mg/dL (83-110); Magnesium 1.8 mg/dL (1.6-2.6); Phosphorus 3.6 mg/dL (2.3-4.7); Potassium 4.9 mmol/L (3.5-5.1); Sodium 132 mmol/L (136-145)
[2023-03-18] MEDS: HumaLOG 300 UNITS/3 ML VIAL SC PRN ×3 (06:32→23:43)
[2023-03-18 07:57] LABS: Bacteria/HPF None Seen HPF (None Seen); Bilirubin Negative (Negative); Blood, Urine Negative (Negative); CAUTI Indications for Culture Alt mental st,lethar; Clarity Clear (Clear); Glucose, Urine (Dipstick) Normal (Negative); Ketone, Urine Negative (Negative); Leukocyte Negative Leu/uL (Negative); Nitrite Negative (Negative); Protein, Urine (Dipstick) Negative (Neg-Trace); RBC/HPF None Seen HPF (0-3); Specific Gravity, Urine 1.012 (1.002-1.036); Squamous Epithelial 0-3 HPF (0-3); Urobilinogen Normal mg/dL (Less than 2); WBC/HPF None Seen HPF (0-3)
[2023-03-18 08:00] LABS: Urine Culture Reflex No No
[2023-03-18] MEDS ORDERED: Sertraline 100 MG TAB PO SCH (09:00)
[2023-03-18] MEDS ORDERED: Ascorbic Acid 500 mg Chewable Tablet PO SCH (09:00)
[2023-03-18] MEDS ORDERED: hydrALAZINE 25 MG TAB PO SCH (09:00)
[2023-03-18] MEDS: Carvedilol 6.25 MG TAB PO SCH ×2 (10:25→17:55)
[2023-03-18] MEDS: traMADol HCl 50 MG TAB PO SCH ×2 (10:26→20:45)
[2023-03-18] MEDS: Famotidine 20 MG TAB PO SCH (10:26)
[2023-03-18] MEDS: Gabapentin 100 MG CAP PO SCH ×2 (16:13→20:43)
[2023-03-18] MEDS: Sacubitril 24MG/Valsartan 26 MG TAB PO SCH (20:42)
[2023-03-18] MEDS: Donepezil HCl 10 MG TAB PO SCH (20:43)
[2023-03-18] MEDS: Apixaban 5 MG TAB PO SCH (20:44)
[2023-03-18] MEDS: Ascorbic Acid 500 mg Chewable Tablet PO SCH (20:44)
[2023-03-18] MEDS: hydrALAZINE 25 MG TAB PO SCH (20:44)
[2023-03-18] MEDS: QUEtiapine 25 MG TAB PO SCH (20:46)
[2023-03-18] MEDS: Simvastatin 10 MG TAB PO SCH (20:46)
[2023-03-18] MEDS ORDERED: Donepezil HCl 10 MG TAB PO SCH (21:00)
[2023-03-18] MEDS ORDERED: Sacubitril 24MG/Valsartan 26 MG TAB PO SCH (21:00)
[2023-03-18] MEDS ORDERED: Apixaban 5 MG TAB PO SCH (21:00)
[2023-03-18] MEDS ORDERED: Simvastatin 10 MG TAB PO SCH (21:00)
[2023-03-18] MEDS ORDERED: Pravastatin Sodium 20 MG TAB PO SCH (21:00)
[2023-03-19] MEDS: Acetaminophen 325 MG TAB PO SCH ×4 (05:01→23:56)
[2023-03-19] MEDS ORDERED: MEGESTROL ACETATE 20 MG PO SCH (09:00)
[2023-03-19] MEDS ORDERED: Non-Formulary Item 1 EACH (Insulin Detemir [Levemir] 100 UNIT/ML Vial) SQ SCH (09:00)
[2023-03-19] MEDS ORDERED: Non-Formulary Item 1 EACH (Sertraline Hcl [Sertraline Hcl] 50 MG Tablet) PO SCH (09:00)
[2023-03-19] MEDS: Insulin Glargine 30 UNITS/0.3 ML VIAL SC SCH (09:46)
[2023-03-19] MEDS: Sertraline 25 MG TAB PO SCH (09:47)
[2023-03-19] MEDS: hydrALAZINE 25 MG TAB PO SCH ×2 (09:48→20:20)
[2023-03-19] MEDS: Sacubitril 24MG/Valsartan 26 MG TAB PO SCH ×2 (09:48→20:16)
[2023-03-19] MEDS: Carvedilol 6.25 MG TAB PO SCH ×2 (09:48→18:02)
[2023-03-19] MEDS: traMADol HCl 50 MG TAB PO SCH ×2 (09:48→20:17)
[2023-03-19] MEDS: Famotidine 20 MG TAB PO SCH (09:48)
[2023-03-19] MEDS: Gabapentin 100 MG CAP PO SCH ×3 (09:49→20:17)
[2023-03-19] MEDS: Apixaban 5 MG TAB PO SCH ×2 (09:49→20:16)
[2023-03-19] MEDS: Aspirin 81 mg Enteric Coated Tablet PO SCH (09:49)
[2023-03-19] MEDS: Ferrous Sulfate 325 MG TAB PO SCH (09:49)
[2023-03-19] MEDS: Ascorbic Acid 500 mg Chewable Tablet PO SCH ×2 (09:49→20:18)
[2023-03-19] MEDS: Multivitamin W/ Minerals 1 TAB PO SCH (09:50)
[2023-03-19] MEDS: Megestrol Acetate 40 MG TAB PO SCH (09:52)
[2023-03-19] MEDS: HumaLOG 300 UNITS/3 ML VIAL SC PRN ×2 (18:06→20:27)
[2023-03-19] MEDS: Donepezil HCl 10 MG TAB PO SCH (20:16)
[2023-03-19] MEDS: Simvastatin 10 MG TAB PO SCH (20:19)
[2023-03-19] MEDS: QUEtiapine 25 MG TAB PO SCH (20:21)
[2023-03-19] MEDS: traMADol HCl 50 MG TAB PO PRN (23:58)
[2023-03-20] MEDS: Acetaminophen 325 MG TAB PO SCH ×2 (05:23→11:56)
[2023-03-20] MEDS: HumaLOG 300 UNITS/3 ML VIAL SC PRN (06:20)
[2023-03-20] MEDS ORDERED: Polyethylene Glycol 3350 17 GM Packet PO SCH (09:00)
[2023-03-20] MEDS ORDERED: Senokot S 8.6-50 MG TAB PO SCH (09:00)
[2023-03-20] MEDS ORDERED: Famotidine 20 MG TAB PO SCH (09:00)
[2023-03-20] MEDS: Aspirin 81 mg Enteric Coated Tablet PO SCH (09:57)
[2023-03-20] MEDS: Famotidine 20 MG TAB PO SCH (09:58)
[2023-03-20] MEDS: hydrALAZINE 25 MG TAB PO SCH (09:58)
[2023-03-20] MEDS: Multivitamin W/ Minerals 1 TAB PO SCH (09:59)
[2023-03-20] MEDS: Sacubitril 24MG/Valsartan 26 MG TAB PO SCH (09:59)
[2023-03-20] MEDS: Ferrous Sulfate 325 MG TAB PO SCH (09:59)
[2023-03-20] MEDS: Sertraline 25 MG TAB PO SCH (09:59)
[2023-03-20] MEDS: Apixaban 5 MG TAB PO SCH (10:00)
[2023-03-20] MEDS: Ascorbic Acid 500 mg Chewable Tablet PO SCH (10:00)
[2023-03-20] MEDS: Carvedilol 6.25 MG TAB PO SCH (10:00)
[2023-03-20] MEDS: Gabapentin 100 MG CAP PO SCH (10:00)
[2023-03-20] MEDS: Megestrol Acetate 40 MG TAB PO SCH (10:01)
[2023-03-20] MEDS: Insulin Glargine 30 UNITS/0.3 ML VIAL SC SCH (10:02)
[2023-03-20] MEDS: traMADol HCl 50 MG TAB PO SCH (10:02)
[2023-03-20 11:40] VITALS: TEMP 96.9
[2023-03-20 12:08] VITALS: BP 118/55
== END 2023-03-20 12:45 | DRG 536 ==
LOC: ERS 14:51 → 2NO 18:29
PROVIDERS: ADMIT Surgery; ATTEND Surgery
DX: S32.432A Displaced fracture of anterior column [iliopubic] of left acetabulum, initial encounter for closed fracture (principal); W19.XXXA Unspecified fall, initial encounter; F03.90 Unspecified dementia, unspecified severity, without behavioral disturbance, psychotic disturbance, mood disturbance, and anxiety; I48.91 Unspecified atrial fibrillation; E78.5 Hyperlipidemia, unspecified; E11.22 Type 2 diabetes mellitus with diabetic chronic kidney disease; I12.9 Hypertensive chronic kidney disease with stage 1 through stage 4 chronic kidney disease, or unspecified chronic kidney disease; Z96.643 Presence of artificial hip joint, bilateral; N18.9 Chronic kidney disease, unspecified; Y92.9 Unspecified place or not applicable; Z98.890 Other specified postprocedural states; Z88.0 Allergy status to penicillin; Z79.01 Long term (current) use of anticoagulants
CPT/HCPCS: 36415; 36416; 70450; 71045; 80048; 80053; 81001; 83735; 83880; 84100; 84484; 85025; 85610; 85730; 90714; 93005; 96374; G0390; J1815; J3010; S0179

== ENCOUNTER 2023-07-24 12:51 | Emergency (ER) | payer MEDICARE ==
[2023-07-24 13:54] LABS: #Eosinphils 0.1 thou/uL (0.0-0.7); #Monocytes 0.3 thou/uL (0.11-0.59); #Neutrophils 2.4 thou/uL (1.40-6.50); %Basophils 0.2 % (0.0-1.0); %Eosinophils 1.8 % (0.0-10.0); %Lymphocytes 40.2 % (21.0-51.0); %Monocytes 5.9 % (0.0-10.0); %Neutrophils 51.7 % (42.0-75.0); Hematocrit 39.5 % (36.0-47.0); Hemoglobin 12.6 g/dL (12.0-16.0); Mean Corpuscular HGB CONC 31.9 g/dL (32.0-36.0); Mean Corpuscular Hemoglobin 30.2 pg (27.0-31.0); Mean Corpuscular Volume 94.7 fl (78.0-98.0); Mean Platelet Volume 10.6 fL (7.4-10.4); Platelet Count 145 10x3/uL (130-400); RBC Distribution Width 14.5 % (11.5-14.5); Red Blood Cell (RBC) Count 4.17 mill/uL (4.20-5.40); White Blood Cell (WBC) Count 4.6 10x3/uL (4.8-10.8)
[2023-07-24 14:23] LABS: ALT (SGPT) 17 U/L (8-55); AST (SGOT) 28 U/L (5-34); Albumin 3.5 g/dL (3.4-4.8); Alkaline Phosphatase 65 U/L (40-110); Anion Gap 14 mmol/L (10-20); BUN (Urea Nitrogen) 48 mg/dL (9.8-20.1); Bilirubin, Total 0.5 mg/dL (0.2-1.2); Calc. Creatinine Clearance 0 mL/min (70-130); Calcium 8.9 mg/dL (7.8-10.44); Carbon Dioxide 22 mmol/L (23-31); Chloride 111 mmol/L (98-107); Estimated GFR 39; Glucose 150 mg/dL (83-110); Potassium 4.8 mmol/L (3.5-5.1); Protein, Total 7.5 g/dL (5.8-8.1); Sodium 142 mmol/L (136-145)
[2023-07-24 16:05] LABS: SARS-CoV-2 NAA Rapid Test DETECTED (NotDetected)
== END 2023-07-24 17:29 | disposition home or self-care (01) ==
LOC: ERS 12:51
DX: U07.1 COVID-19 (principal)
CPT/HCPCS: 0240U; 51701; 80053; 85025; 93005; 94760; 99285; 36415

== ENCOUNTER 2024-01-10 14:50 | Emergency (ER) | payer MEDICARE, BC ==
[2024-01-10] MEDS ORDERED: Acetaminophen 500 MG TAB ONE (15:28)
== END 2024-01-10 23:17 ==
LOC: ERS 14:50
DX: S22.062A Unstable burst fracture of T7-T8 vertebra, initial encounter for closed fracture (principal); I13.0 Hypertensive heart and chronic kidney disease with heart failure and stage 1 through stage 4 chronic kidney disease, or unspecified chronic kidney disease; I50.9 Heart failure, unspecified; N18.30 Chronic kidney disease, stage 3 unspecified; E11.22 Type 2 diabetes mellitus with diabetic chronic kidney disease; W18.30XA Fall on same level, unspecified, initial encounter; Y92.091 Bathroom in other non-institutional residence as the place of occurrence of the external cause
CPT/HCPCS: 36416; 70450; 72128; 72131

== ENCOUNTER 2024-01-30 11:01 | Emergency (ER) | payer MEDICARE, BC ==
[2024-01-30 12:20] LABS: #Basophils 0.04 10x3/uL (0.0-0.2); %Basophils 0.5 % (0.0-1.0); %Eosinophils 4.2 % (0.0-10.0); %Lymphocytes 25.4 % (21.0-51.0); %Monocytes 6.3 % (0.0-10.0); %Neutrophils 63.2 % (42.0-75.0); Hematocrit 41.7 % (36.0-47.0); Hemoglobin 13.2 g/dL (12.0-16.0); Mean Corpuscular HGB CONC 31.7 g/dL (32.0-36.0); Mean Corpuscular Hemoglobin 30.9 pg (27.0-31.0); Mean Corpuscular Volume 97.7 fL (78.0-98.0); Mean Platelet Volume 10.7 fL (7.4-10.4); Platelet Count 226 10x3/uL (130-400); RBC Distribution Width 15.1 % (11.5-14.5); Red Blood Cell (RBC) Count 4.27 mill/uL (4.20-5.40)
[2024-01-30 12:53] LABS: ALT (SGPT) 13 U/L (8-55); AST (SGOT) 18 U/L (5-34); Alkaline Phosphatase 103 U/L (40-110); Anion Gap 13 mmol/L (10-20); BUN (Urea Nitrogen) 40 mg/dL (9.8-20.1); Bilirubin, Total 0.6 mg/dL (0.2-1.2); Calc. Creatinine Clearance 0 mL/min (70-130); Calcium 9.8 mg/dL (7.8-10.44); Carbon Dioxide 16 mmol/L (23-31); Chloride 114 mmol/L (98-107); Estimated GFR 38; Glucose 193 mg/dL (83-110); Potassium 4.6 mmol/L (3.5-5.1); Sodium 138 mmol/L (136-145)
[2024-01-30 12:56] LABS: Troponin I 0.012 ng/mL (< 0.028)
[2024-01-30 14:49] LABS: Bacteria/HPF 3+ HPF (None Seen); Bilirubin Negative (Negative); Blood, Urine Negative (Negative); CAUTI Indications for Culture Pelvic or flank pain; Clarity Clear (Clear); Glucose, Urine (Dipstick) Normal (Negative); Ketone, Urine Negative (Negative); Leukocyte 250 Leu/uL (Negative); Nitrite Negative (Negative); Protein, Urine (Dipstick) Negative (Neg-Trace); Squamous Epithelial 0-3 HPF (0-3); Urobilinogen Normal mg/dL (Less than 2); pH, Urine 5.5 (5.0-9.0)
[2024-01-30 14:50] LABS: Urine Culture Reflex No No
== END 2024-01-30 19:21 ==
LOC: ERS 11:01
DX: M79.605 Pain in left leg (principal); M25.552 Pain in left hip; I13.0 Hypertensive heart and chronic kidney disease with heart failure and stage 1 through stage 4 chronic kidney disease, or unspecified chronic kidney disease; I50.9 Heart failure, unspecified; N18.30 Chronic kidney disease, stage 3 unspecified; E11.22 Type 2 diabetes mellitus with diabetic chronic kidney disease
CPT/HCPCS: 36416; 70450; 71045; 80053; 81001; 83880; 84484; 85025; 93005; 94760

== ENCOUNTER 2024-03-17 11:07 | Outpatient (CLI) | payer MEDICARE, BC | END 2024-03-17 11:08 | disposition home or self-care (01) | LOC: BICRAD 11:07 | PROVIDERS: ATTEND Neurological Surgery | DX: S22.069D Unspecified fracture of T7-T8 vertebra, subsequent encounter for fracture with routine healing (principal) | CPT/HCPCS: 72070 ==

== ENCOUNTER 2024-04-30 17:34 | Inpatient (IN) | payer MEDICARE, BC ==
[2024-04-30 19:53] LABS: Bilirubin Negative (Negative); Blood, Urine Trace (Negative); CAUTI Indications for Culture Dysuria,urgency,freq; Clarity Turbid (Clear); Glucose, Urine (Dipstick) Normal (Negative); Ketone, Urine Negative (Negative); Leukocyte 500 Leu/uL (Negative); Nitrite Negative (Negative); Protein, Urine (Dipstick) 70 mg/dL (Neg-Trace); Specific Gravity, Urine 1.007 (1.002-1.036); Squamous Epithelial 0-3 HPF (0-3); Urobilinogen Normal mg/dL (Less than 2)
[2024-04-30 19:55] LABS: Bacteria/HPF Rare-Few HPF (None Seen); Triple Phosphate Crystal Rare HPF (None Seen); WBC/HPF 21-50 HPF (0-3)
[2024-04-30 19:56] LABS: RBC/HPF 0-3 HPF (0-3); Urine Culture Reflex Yes Yes
[2024-04-30] MEDS ORDERED: cefTRIAXone (ROCEPHIN) 2 GM VIAL ONE (19:59)
[2024-04-30] MEDS ORDERED: Sodium Chloride 0.9% 100 ML ONE (19:59)
[2024-04-30 20:27] LABS: #Basophils Less than 0.03 10x3/uL (0.0-0.2); %Basophils 0.1 % (0.0-1.0); %Eosinophils 1.3 % (0.0-10.0); %Lymphocytes 18.8 % (21.0-51.0); %Monocytes 5.4 % (0.0-10.0); %Neutrophils 73.9 % (42.0-75.0); Hematocrit 40.5 % (36.0-47.0); Hemoglobin 12.7 g/dL (12.0-16.0); Mean Corpuscular HGB CONC 31.4 g/dL (32.0-36.0); Mean Corpuscular Hemoglobin 31.8 pg (27.0-31.0); Mean Corpuscular Volume 101.5 fL (78.0-98.0); Mean Platelet Volume 10.9 fL (7.4-10.4); Platelet Count 181 10x3/uL (130-400); RBC Distribution Width 14.9 % (11.5-14.5); Red Blood Cell (RBC) Count 3.99 mill/uL (4.20-5.40)
[2024-04-30 20:44] LABS: ALT (SGPT) 16 U/L (8-55); AST (SGOT) 23 U/L (5-34); Albumin 2.8 g/dL (3.4-4.8); Alkaline Phosphatase 76 U/L (40-110); Anion Gap 12 mmol/L (10-20); BUN (Urea Nitrogen) 54 mg/dL (9.8-20.1); Bilirubin, Total 0.4 mg/dL (0.2-1.2); Calc. Creatinine Clearance 0 mL/min (70-130); Calcium 9.5 mg/dL (7.8-10.44); Carbon Dioxide 18 mmol/L (23-31); Chloride 113 mmol/L (98-107); Estimated GFR 17; Globulin 4.4 g/dL (2.4-3.5); Glucose 207 mg/dL (83-110); Lipase 24 U/L (8-78); Potassium 3.9 mmol/L (3.5-5.1); Protein, Total 7.2 g/dL (5.8-8.1); Sodium 139 mmol/L (136-145)
[2024-04-30 20:50] LABS: Troponin I 0.043 ng/mL (< 0.028)
[2024-04-30] MEDS ORDERED: Ondansetron PF 4 MG/2 ML Vial IVP PRN (22:54)
[2024-04-30] MEDS ORDERED: Dextrose 5% in Water 1,000 ML IV PRN (23:48)
[2024-04-30] MEDS ORDERED: Glucagon 1 MG/ML KIT IM PRN (23:48)
[2024-04-30] MEDS ORDERED: Insulin Lispro 100 UNIT/ML 10 ML VIAL SC PRN (23:48)
[2024-04-30] MEDS ORDERED: Dextrose 50% Abboject 50 ML SYRINGE SLOW IVP PRN (23:48)
[2024-05-01 00:58] LABS: Magnesium 1.8 mg/dL (1.6-2.6); Phosphorus 2.7 mg/dL (2.3-4.7)
[2024-05-01 01:01] LABS: Troponin I 0.046 ng/mL (< 0.028)
[2024-05-01] MEDS: Lactated Ringer's 1,000 ML IV SCH (01:53)
[2024-05-01] MEDS: Pantoprazole 40 MG VIAL IVP SCH (01:53)
[2024-05-01 04:32] LABS: #Basophils 0.04 10x3/uL (0.0-0.2); %Basophils 0.4 % (0.0-1.0); %Eosinophils 2.9 % (0.0-10.0); %Monocytes 7.7 % (0.0-10.0); %Neutrophils 61.4 % (42.0-75.0); Hematocrit 36.8 % (36.0-47.0); Hemoglobin 11.6 g/dL (12.0-16.0); Mean Corpuscular HGB CONC 31.5 g/dL (32.0-36.0); Mean Corpuscular Volume 98.4 fL (78.0-98.0); Platelet Count 170 10x3/uL (130-400); RBC Distribution Width 14.8 % (11.5-14.5); Red Blood Cell (RBC) Count 3.74 mill/uL (4.20-5.40)
[2024-05-01 05:00] LABS: ALT (SGPT) 14 U/L (8-55); AST (SGOT) 21 U/L (5-34); Albumin 2.5 g/dL (3.4-4.8); Alkaline Phosphatase 68 U/L (40-110); Anion Gap 11 mmol/L (10-20); BUN (Urea Nitrogen) 49 mg/dL (9.8-20.1); Bilirubin, Total 0.3 mg/dL (0.2-1.2); Calc. Creatinine Clearance 16 mL/min (70-130); Calcium 9.3 mg/dL (7.8-10.44); Carbon Dioxide 21 mmol/L (23-31); Chloride 115 mmol/L (98-107); Estimated GFR 22; Globulin 3.8 g/dL (2.4-3.5); Glucose 124 mg/dL (83-110); Potassium 3.6 mmol/L (3.5-5.1); Protein, Total 6.3 g/dL (5.8-8.1); Sodium 143 mmol/L (136-145)
[2024-05-01] MEDS: Sacubitril 24MG/Valsartan 26 MG TAB PO SCH (08:54)
[2024-05-01] MEDS: Carvedilol 25 MG TAB PO SCH (08:54)
[2024-05-01] MEDS ORDERED: FLU (Fluad Triv) TS24-25 (65UP)/MF59C/PF 45 MCG/0.5 ML Syringe IM ONE (09:00)
[2024-05-01 14:53] LABS: Hematocrit 38.5 % (36.0-47.0); Hemoglobin 12.3 g/dL (12.0-16.0)
[2024-05-01] MEDS: Apixaban 2.5 MG TAB PO SCH (20:30)
[2024-05-01] MEDS: cefTRIAXone\\ROCEPHIN 1 GM in Sodium Chloride 0.9% 100 ML IVPB SCH (20:31)
[2024-05-02] MEDS: Insulin Lispro 100 UNIT/ML 10 ML VIAL SC PRN (05:51)
[2024-05-02 06:05] LABS: #Basophils 0.03 10x3/uL (0.0-0.2); %Basophils 0.3 % (0.0-1.0); %Lymphocytes 22.2 % (21.0-51.0); %Monocytes 7.9 % (0.0-10.0); %Neutrophils 67.1 % (42.0-75.0); Hematocrit 35.2 % (36.0-47.0); Hemoglobin 11.5 g/dL (12.0-16.0); Mean Corpuscular HGB CONC 32.7 g/dL (32.0-36.0); Mean Corpuscular Hemoglobin 31.9 pg (27.0-31.0); Mean Corpuscular Volume 97.5 fL (78.0-98.0); Mean Platelet Volume 11.3 fL (7.4-10.4); Platelet Count 151 10x3/uL (130-400); RBC Distribution Width 14.6 % (11.5-14.5); Red Blood Cell (RBC) Count 3.61 mill/uL (4.20-5.40)
[2024-05-02 06:54] LABS: ALT (SGPT) 13 U/L (8-55); AST (SGOT) 20 U/L (5-34); Albumin 2.3 g/dL (3.4-4.8); Alkaline Phosphatase 64 U/L (40-110); Anion Gap 13 mmol/L (10-20); BUN (Urea Nitrogen) 33 mg/dL (9.8-20.1); Bilirubin, Total 0.4 mg/dL (0.2-1.2); Calc. Creatinine Clearance 24 mL/min (70-130); Calcium 9.2 mg/dL (7.8-10.44); Carbon Dioxide 19 mmol/L (23-31); Chloride 115 mmol/L (98-107); Estimated GFR 38; Globulin 3.8 g/dL (2.4-3.5); Glucose 170 mg/dL (83-110); Potassium 3.8 mmol/L (3.5-5.1); Protein, Total 6.1 g/dL (5.8-8.1); Sodium 143 mmol/L (136-145)
[2024-05-02] MEDS: Memantine 10 MG TAB PO SCH (09:08)
[2024-05-03] MEDS: Simvastatin 5 MG TAB PO SCH (08:53)
[2024-05-03 11:03] LABS: #Basophils 0.03 10x3/uL (0.0-0.2); %Basophils 0.3 % (0.0-1.0); %Eosinophils 1.6 % (0.0-10.0); %Monocytes 6.5 % (0.0-10.0); %Neutrophils 74.9 % (42.0-75.0); Hematocrit 34.4 % (36.0-47.0); Hemoglobin 11.5 g/dL (12.0-16.0); Mean Corpuscular HGB CONC 33.4 g/dL (32.0-36.0); Mean Corpuscular Hemoglobin 31.7 pg (27.0-31.0); Mean Corpuscular Volume 94.8 fL (78.0-98.0); Mean Platelet Volume 11.4 fL (7.4-10.4); Platelet Count 148 10x3/uL (130-400); RBC Distribution Width 14.7 % (11.5-14.5); Red Blood Cell (RBC) Count 3.63 mill/uL (4.20-5.40)
[2024-05-03 11:36] VITALS: BMI 19.9
[2024-05-03 11:45] LABS: ALT (SGPT) 13 U/L (8-55); AST (SGOT) 18 U/L (5-34); Albumin 2.2 g/dL (3.4-4.8); Alkaline Phosphatase 64 U/L (40-110); Anion Gap 15 mmol/L (10-20); BUN (Urea Nitrogen) 26 mg/dL (9.8-20.1); Bilirubin, Total 0.6 mg/dL (0.2-1.2); Calc. Creatinine Clearance 29 mL/min (70-130); Carbon Dioxide 17 mmol/L (23-31); Chloride 112 mmol/L (98-107); Estimated GFR 45; Globulin 3.7 g/dL (2.4-3.5); Glucose 229 mg/dL (83-110); Potassium 3.8 mmol/L (3.5-5.1); Protein, Total 5.9 g/dL (5.8-8.1); Sodium 140 mmol/L (136-145)
[2024-05-04 04:41] LABS: #Basophils 0.03 10x3/uL (0.0-0.2); %Basophils 0.3 % (0.0-1.0); %Eosinophils 2.3 % (0.0-10.0); %Lymphocytes 24.2 % (21.0-51.0); %Monocytes 5.8 % (0.0-10.0); %Neutrophils 66.8 % (42.0-75.0); Hemoglobin 11.1 g/dL (12.0-16.0); Mean Corpuscular HGB CONC 32.6 g/dL (32.0-36.0); Mean Corpuscular Hemoglobin 31.8 pg (27.0-31.0); Mean Corpuscular Volume 97.4 fL (78.0-98.0); Mean Platelet Volume 11.2 fL (7.4-10.4); Platelet Count 164 10x3/uL (130-400); RBC Distribution Width 14.7 % (11.5-14.5); Red Blood Cell (RBC) Count 3.49 mill/uL (4.20-5.40)
[2024-05-04 06:04] LABS: ALT (SGPT) 12 U/L (8-55); Albumin 2.3 g/dL (3.4-4.8); Alkaline Phosphatase 69 U/L (40-110); Anion Gap 13 mmol/L (10-20); BUN (Urea Nitrogen) 29 mg/dL (9.8-20.1); Bilirubin, Total 0.5 mg/dL (0.2-1.2); Calc. Creatinine Clearance 30 mL/min (70-130); Calcium 9.1 mg/dL (7.8-10.44); Carbon Dioxide 21 mmol/L (23-31); Chloride 111 mmol/L (98-107); Estimated GFR 49; Globulin 3.9 g/dL (2.4-3.5); Glucose 169 mg/dL (83-110); Potassium 3.4 mmol/L (3.5-5.1); Protein, Total 6.2 g/dL (5.8-8.1); Sodium 142 mmol/L (136-145)
[2024-05-04 06:57] LABS: AST (SGOT) 17 U/L (5-34)
[2024-05-04] MEDS: Sertraline 100 MG TAB PO SCH (08:44)
[2024-05-04] MEDS: Potassium Chloride 20 MEQ TAB PO SCH (09:49)
[2024-05-04] MEDS: Acetaminophen 325 MG TAB PO PRN (20:58)
[2024-05-05 04:44] LABS: #Basophils 0.03 10x3/uL (0.0-0.2); %Basophils 0.4 % (0.0-1.0); %Eosinophils 3.2 % (0.0-10.0); %Lymphocytes 23.1 % (21.0-51.0); %Monocytes 5.6 % (0.0-10.0); %Neutrophils 67.1 % (42.0-75.0); Hematocrit 33.1 % (36.0-47.0); Hemoglobin 10.5 g/dL (12.0-16.0); Mean Corpuscular HGB CONC 31.7 g/dL (32.0-36.0); Mean Corpuscular Hemoglobin 31.5 pg (27.0-31.0); Mean Corpuscular Volume 99.4 fL (78.0-98.0); Platelet Count 175 10x3/uL (130-400); RBC Distribution Width 14.7 % (11.5-14.5); Red Blood Cell (RBC) Count 3.33 mill/uL (4.20-5.40)
[2024-05-05 05:05] LABS: ALT (SGPT) 12 U/L (8-55); AST (SGOT) 16 U/L (5-34); Albumin 2.1 g/dL (3.4-4.8); Alkaline Phosphatase 63 U/L (40-110); Anion Gap 10 mmol/L (10-20); BUN (Urea Nitrogen) 22 mg/dL (9.8-20.1); Bilirubin, Total 0.6 mg/dL (0.2-1.2); Calc. Creatinine Clearance 39 mL/min (70-130); Calcium 8.9 mg/dL (7.8-10.44); Carbon Dioxide 21 mmol/L (23-31); Chloride 113 mmol/L (98-107); Estimated GFR 63; Globulin 3.8 g/dL (2.4-3.5); Glucose 130 mg/dL (83-110); Potassium 3.4 mmol/L (3.5-5.1); Protein, Total 5.9 g/dL (5.8-8.1); Sodium 141 mmol/L (136-145)
[2024-05-05 09:17] VITALS: TEMP 98.5
[2024-05-05 11:26] VITALS: BP 148/66
== END 2024-05-05 14:44 | DRG 689 ==
LOC: ERS 17:34 → 2NO 22:54
PROVIDERS: ADMIT Student in an Organized Health Care Education/Training Program; ATTEND Student in an Organized Health Care Education/Training Program
DX: N39.0 Urinary tract infection, site not specified (principal); G93.41 Metabolic encephalopathy; N17.9 Acute kidney failure, unspecified; I48.91 Unspecified atrial fibrillation; E86.0 Dehydration; E87.6 Hypokalemia; I10 Essential (primary) hypertension; E11.9 Type 2 diabetes mellitus without complications; E78.5 Hyperlipidemia, unspecified; Z88.0 Allergy status to penicillin; Z79.899 Other long term (current) drug therapy; K21.9 Gastro-esophageal reflux disease without esophagitis; Z96.643 Presence of artificial hip joint, bilateral
CPT/HCPCS: 36415; 36416; 51701; 71045; 80053; 81001; 82140; 82274; 83605; 83690; 83735; 84100; 84443; 84484; 85025; 87040; 87077; 87086; 87186; 93005; 96374; 97139; J0696; J1815; J7120

== ENCOUNTER 2024-06-29 15:44 | Emergency (ER) | payer MEDICARE, BC ==
[2024-06-29] MEDS ORDERED: NOREPINEPHRINE 8 MG/250 ML-D5W 250 ML ONE (16:02)
== END 2024-06-29 16:21 | disposition expired ==
LOC: ERS 15:44
DX: I46.9 Cardiac arrest, cause unspecified (principal); I13.0 Hypertensive heart and chronic kidney disease with heart failure and stage 1 through stage 4 chronic kidney disease, or unspecified chronic kidney disease; I50.9 Heart failure, unspecified; N18.30 Chronic kidney disease, stage 3 unspecified; E11.22 Type 2 diabetes mellitus with diabetic chronic kidney disease
CPT/HCPCS: 92950; 94760; 96374; 96375